=== PATIENT | female | born 1970 | race Caucasian/White ===

== ENCOUNTER → 2024-02-17 17:42 | Outpatient (REF) | payer SELFPAY | LOC: HWRAD 17:42 | PROVIDERS: ATTENDING PHYSICIAN Family Medicine; FAMILY PHYSICIAN Family Medicine | DX: S83.91XA Sprain of unspecified site of right knee, initial encounter (principal); S93.602A Unspecified sprain of left foot, initial encounter | CPT/HCPCS: 73564; 73630 ==

== ENCOUNTER → 2024-06-16 09:36 | Outpatient (REF) | payer OTHER, SELFPAY | LOC: RAD 09:36 | PROVIDERS: ATTENDING PHYSICIAN Physician Assistant Medical; FAMILY PHYSICIAN Family Medicine | DX: N15.1 Renal and perinephric abscess (principal); N28.89 Other specified disorders of kidney and ureter | CPT/HCPCS: 78707; A9539 ==

== ENCOUNTER → 2024-09-07 15:04 | Outpatient (REF) | payer OTHER, SELFPAY | LOC: HWRAD 15:04 | PROVIDERS: ATTENDING PHYSICIAN Urology; FAMILY PHYSICIAN Family Medicine | DX: N15.1 Renal and perinephric abscess (principal); N39.41 Urge incontinence; N32.81 Overactive bladder; R39.16 Straining to void; N13.70 Vesicoureteral-reflux, unspecified | CPT/HCPCS: 74178; Q9967 ==

== ENCOUNTER 2024-10-19 19:00 | Inpatient (IN) | payer OTHER, SELFPAY ==
[2024-10-19] VITALS (8 sets, daily range): BP systolic 102–141; BP diastolic 63–80; BMI 26.3; BMI 26.8
[2024-10-19 11:25] LABS: Glucose - Point of Care 466 mg/dl (70-99)
[2024-10-19 11:53] LABS: Hematocrit 29.1 % (37.0-47.0); Hemoglobin 9.8 g/dL (12.0-16.0); Mean Corp Hgb Conc. 33.7 g/dL (33.0-37.0); Mean Corpuscular Volume 80.2 fL (81.0-99.0); Mean Platelet Volume 9.1 fL (7.4-10.4); Platelet Count 404 10^3/uL (130-400); Red Blood Cell Count 3.63 10^6/uL (4.20-5.40); Red Cell Dist. Width 13.2 % (11.5-14.5); White Blood Cell Count 34.4 10^3/uL (4.8-10.8)
[2024-10-19 12:48] LABS: % Basophils 0.3 % (0-2); % Immature Granulocytes 2.3 % (0-0.5); % Lymphocytes 2.2 % (20.5-51.1); % Monocytes 3.2 % (1.7-9.3); Absolute Basophils 0.1 10^3/uL (0-0.2); Absolute Immature Granulocytes 0.8 10^3/uL (0-0.05); Absolute Lymphocytes 0.8 10^3/uL (1.2-3.4); Absolute Monocytes 1.1 10^3/uL (0.1-0.6); Absolute Neutrophils 31.7 10^3/uL (1.4-6.5); Nucleated Red Blood Cells % 0 %
--- NOTE | 2024-10-19 14:20 | ED.GENMED ---
History of Present Illness
<Daja Scherer, TECHNICAL ADMINISTRATIVE ASSISTANT - Last Filed: 10/19/24 19:38>
General
Chief Complaint: Blood Sugar Problem
Source: patient
Exam Limitations: none
Time Seen by Provider: 10/19/24 13:53
Nursing documentation reviewed up to this point in time: agreed with
History of Present Illness
History of Present Illness:
54 yo female w h/o asthma, IDDM, HLD, Crohn's disease w J-pouch, GERD, colectomy, UTIs, kidney abscess 12/2022, present for fever, night sweats past week. Her blood sugar at home this a.m. was 512 but she fell asleep and didn't take her p.m. Insulin
last night. Max temp was 102.3 4 nights ago, has been taking Tylenol and Motrin with some control of fever.
Has had pain left thigh and groin past 3 days, not much pain with moving the leg or hip at rest but pain is significant past 2 days with weight bearing.
Developed pain LLQ radiating up to just under left lower ribs last night, has been constant now 03/29
Earlier this month had similar symptoms, PCP gave Augmentin for +UTI. Finished the Augmentin on 09/30.
Past History
<Daja Scherer, TECHNICAL ADMINISTRATIVE ASSISTANT - Last Filed: 10/19/24 19:38>
Past History
ED Past Medical History: Asthma, GERD, HTN, Hypercholesterolemia, IDDM, Other (Crohn's disease with J-pouch) and Other (Ovarian cyst, kidney stone)
ED Past Surgical History: Bowel resection
Social History
Tobacco: Non-smoker
Drug: None
Personal:
Living: with family
Employment: Employed
Family History
Family History: Other (No significant)
Review of Systems
<Daja Scherer, TECHNICAL ADMINISTRATIVE ASSISTANT - Last Filed: 10/19/24 19:38>
Review of Systems
Allergies reviewed?: Yes
All Other Systems: ROS reviewed and negative except as documented in HPI and ROS
Constitutional: Reports fever and chills
Respiratory: Denies trouble breathing
Cardiac: Reports diaphoresis (night sweats); Denies chest pain
ABD/GI: Reports abdominal pain; Denies nausea, vomiting or diarrhea
: Denies dysuria, frequency, flank pain, difficulty voiding or urgency
Musculoskeletal: Reports other (pain left groin/hip area); Denies edema
Skin: Reports no symptoms
Neurological: Reports no symptoms
Phy Exam
<Daja Scherer, TECHNICAL ADMINISTRATIVE ASSISTANT - Last Filed: 10/19/24 19:38>
Physical Exam
Physical Exam:
GENERAL: No acute distress. A&Ox3.
CONSTITUTIONAL: Afebrile.
EYES: clear, conjunctivae normal
ENMT: dry mucus membranes, Pharynx nl
RESPIRATORY: Regular respirations, nonlabored, lungs clear.
CARDIOVASCULAR: Regular rate and rhythm, no murmurs, no rubs.
GI: Soft, nontender, normal BS
MUSCULOSKELETAL: Full ROM of left hip with minimal pain laying supine. Tender to deep palpation left groin. Moves with ease. Well perfused.
SKIN: Warm, dry, pink
PSYCH: Normal mood and affect. Well kept, interactive and appropriate
NEUROLOGIC: Awake, alert and oriented. No focal neurological deficits
Course
<Daja Scherer, TECHNICAL ADMINISTRATIVE ASSISTANT - Last Filed: 10/19/24 19:38>
Orders/Labs/Results
Orders:
Orders
10/19/24 11:22
Test Result ONCE
10/19/24 11:33
Complete Blood Count/With Diff Urgent
Lactic Acid Urgent
10/19/24 14:09
B-Hydroxybutyrate Urgent
Comment: ADD ON
Comprehensive Metabolic Panel Urgent
HCG, Serum Qualitative Screen Urgent
Urinalysis Reflex To Culture Urgent
Date Specimen was Collected: 10/19/24
Time Specimen was Collected: 11:21
Urine Microscopic Reflex Cult Urgent
Urine Culture Urgent
CESAR Source: U
Specimen Description:
Obtained by: Random
Date Specimen was Collected: 10/19/24
Time Specimen was Collected: 11:21
10/19/24 14:25
0.9% Sodium Chloride 1000 ml [Nss] 1,000 ml IV BOLUS
10/19/24 15:24
Add On- LAB Urgent
Tests Added?: B=Hydroxybuterate
CXR2 [CR Chest - 2 Views ] Urgent
Comment:
Reason For Exam: Fever/white count/pleuritic pain
10/19/24 15:27
Lactic Acid Q4H
Comment: CANCEL 2nd LACTIC ACID IF 1st LACTIC ACID IS LESS THAN 2
Blood Culture Q30M
CESAR Source: Blood/Venous
Specimen Description:
Blood Culture Q30M
CESAR Source: Blood/Venous
Specimen Description:
10/19/24 15:39
Piperacillin/Tazo 3.375 Gram [Zosyn] 3.375 gram in 50 ml IV NOW
10/19/24 15:40
CT Abd/Pel (IV only)-DH only Urgent
Comment:
Reason For Exam: pain LLQ up to L lower ribcage
10/19/24 15:43
COVID-19 Antigen Urgent
Source: Nasal Swab
Influenza A+B Rapid Molecular Urgent
CESAR Source: Nasal Swab
Specimen Description:
10/19/24 17:08
Urinalysis Reflex To Culture Urgent
Date Specimen was Collected: 10/19/24
Time Specimen was Collected: 17:07
Urine Microscopic Reflex Cult Urgent
Urine Culture Urgent
CESAR Source: U
Specimen Description:
Date Specimen was Collected: 10/19/24
Time Specimen was Collected: 17:07
10/19/24 17:51
Vancomycin [Vancocin] 1,500 mg 0.9% Sodium Chloride 500 ml [Nss] 500 ml IV NOW
10/19/24 18:08
UROLOGY CONSULT Urgent
Consulting Provider: Evert Tellez
Was physician already notified: Yes
Comment: intrarenal and retroperitoneal abscesses
10/19/24 18:10
Consult Interventional Radiology [IRAD CONSULT] Urgent
Consulting Provider: Bhavesh Zimmerman
Was physician already notified: Yes
Reason for Consult/Procedure: viridiana renal and intrarenal abscesses
Acknowledgement that appropriate orders are entered: Yes
10/19/24 18:41
Admit/Transfer Patient As Directed
Co-Sign Provider:
Level of Care: Inpatient admission
Assign to:: Medical/Surgical
Physician / Group: brad
Diagnosis: sepsis perirenal retroperioneal abscess, left kidney abscess
Reason for Hospitalization: sepsis perirenal retroperioneal abscess, left kidney abscess
Expected length of stay greater than two midnights?: Yes
ELOS- Estimated Length of Stay in days: 2
I certify the patient meets the requirements for IP care: Yes
PRN Pain Medication Management As Directed
May give lesser potent ordered pain med per pt: Yes
preference::
Protocol:: Medication orders for pain may be administered in a
manner that supports deferring to patient preference
when the pt is:
- Requesting an ordered lesser potent pain medication.
Least to most potent pain medications are defined
as: acetaminophen < NSAID < tramadol < opioids
(morphine, oxycodone, hydromorphone).
- Requesting a lesser dose of the same medication IF
ORDERED.
- Requesting a less intrusive route of administration
if both routes are prescribed by the provider (PO <
IV).
10/19/24 18:42
Code Status As Directed
Resuscitation Status: Full Code
10/19/24 18:54
Petty Catheter [Catheter- Indwelling] As Directed
Reason for insertion: Acute Retention
Discontinue Date/Time: 10/22/24 0600
Abnormal Lab Results
10/19/24 10/19/24 10/19/24
11:23 11:33 14:09
WBC 34.4 H 10^3/uL
(4.8-10.8)
RBC 3.63 L 10^6/uL
(4.20-5.40)
Hgb 9.8 L g/dL
(12.0-16.0)
Hct 29.1 L %
(37.0-47.0)
MCV 80.2 L fL
(81.0-99.0)
Plt Count 404 H 10^3/uL
(130-400)
Abs Immat Gran (auto) 0.8 H 10^3/uL
(0-0.05)
Absolute Neuts (auto) 31.7 H 10^3/uL
(1.4-6.5)
Absolute Lymphs (auto) 0.8 L 10^3/uL
(1.2-3.4)
Absolute Monos (auto) 1.1 H 10^3/uL
(0.1-0.6)
Immature Gran % 2.3 H %
(0-0.5)
Neutrophils % 92.0 H %
(42.2-75.2)
Lymphocytes % 2.2 L %
(20.5-51.1)
Sodium 121 L mmol/L
(135-145)
Chloride 85 L mmol/L
(98-107)
Carbon Dioxide 21 L mmol/L
(22-30)
BUN 34 H mg/dl
(7-17)
Creatinine 1.2 H mg/dL
(0.6-1.0)
Glucose 473 H* mg/dl
(70-99)
Alkaline Phosphatase 268 H U/L
(38-126)
Albumin 3.2 L g/dl
(3.5-5.0)
Urine Ketones 1+ A
(Negative)
Ur Occult Blood Reflex 4+ A
(Negative)
Leukocyte Esterase Rfl 2+ A
(Negative)
Urine RBC 3-6 A /HPF
(0-2)
Urine WBC (Reflex) >100 A /HPF
(0-5)
Urine Bacteria (Reflex)
Urine Yeast Many A
(Negative)
Urine Glucose 3+ A
(Negative)
Urine Albumin (Reflex) 2+ A
(Neg - Trace)
B-Hydroxybutyrate 2.07 H mmol/L
(0.02-0.27)
POC Glucose 466 H* mg/dl
(70-99)
10/19/24 10/19/24
17:08 18:16
WBC
RBC
Hgb
Hct
MCV
Plt Count
Abs Immat Gran (auto)
Absolute Neuts (auto)
Absolute Lymphs (auto)
Absolute Monos (auto)
Immature Gran %
Neutrophils %
Lymphocytes %
Sodium
Chloride
Carbon Dioxide
BUN
Creatinine
Glucose
Alkaline Phosphatase
Albumin
Urine Ketones 1+ A
(Negative)
Ur Occult Blood Reflex 3+ A
(Negative)
Leukocyte Esterase Rfl 2+ A
(Negative)
Urine RBC 11-15 A /HPF
(0-2)
Urine WBC (Reflex) >100 A /HPF
(0-5)
Urine Bacteria (Reflex) Few A
(Negative)
Urine Yeast Moderate A
(Negative)
Urine Glucose 3+ A
(Negative)
Urine Albumin (Reflex) 1+ A
(Neg - Trace)
B-Hydroxybutyrate
POC Glucose 354 H mg/dl
(70-99)
10/19/24 11:33
10/19/24 14:09
Vital Signs
Initial and Last Documented VS:
Initial Vital Signs
Temp Pulse Resp BP Pulse Ox
97.6 F 93 16 117/76 98
10/19/24 11:22 10/19/24 11:22 10/19/24 11:22 10/19/24 11:22 10/19/24 11:22
Last Documented Vital Signs
Temp Pulse Resp BP Pulse Ox
98.3 F 94 18 115/66 98
10/19/24 12:03 10/19/24 17:00 10/19/24 12:03 10/19/24 16:00 10/19/24 17:30
Safety Analyst consulted with Physician
Safety Analyst consulted with physician?: Yes
Name of Physician Consulted: Stephen
<Lokesh Mitchell MD - Last Filed: 10/19/24 15:27>
Orders/Labs/Results
Orders:
Orders
10/19/24 11:22
Test Result ONCE
10/19/24 11:33
Complete Blood Count/With Diff Urgent
Lactic Acid Urgent
10/19/24 14:09
B-Hydroxybutyrate Urgent
Comment: ADD ON
Comprehensive Metabolic Panel Urgent
HCG, Serum Qualitative Screen Urgent
Urinalysis Reflex To Culture Urgent
Date Specimen was Collected: 10/19/24
Time Specimen was Collected: 11:21
Urine Microscopic Reflex Cult Urgent
Urine Culture Urgent
CESAR Source: U
Specimen Description:
Obtained by: Random
Date Specimen was Collected: 10/19/24
Time Specimen was Collected: 11:21
10/19/24 14:25
0.9% Sodium Chloride 1000 ml [Nss] 1,000 ml IV BOLUS
10/19/24 15:24
Add On- LAB Urgent
Tests Added?: B=Hydroxybuterate
CXR2 [CR Chest - 2 Views ] Urgent
Comment:
Reason For Exam: Fever/white count/pleuritic pain
10/19/24 15:27
Lactic Acid Q4H
Comment: CANCEL 2nd LACTIC ACID IF 1st LACTIC ACID IS LESS THAN 2
Blood Culture Q30M
CESAR Source: Blood/Venous
Specimen Description:
Blood Culture Q30M
CESAR Source: Blood/Venous
Specimen Description:
10/19/24 15:39
Piperacillin/Tazo 3.375 Gram [Zosyn] 3.375 gram in 50 ml IV NOW
10/19/24 15:40
CT Abd/Pel (IV only)-DH only Urgent
Comment:
Reason For Exam: pain LLQ up to L lower ribcage
10/19/24 15:43
COVID-19 Antigen Urgent
Source: Nasal Swab
Influenza A+B Rapid Molecular Urgent
CESAR Source: Nasal Swab
Specimen Description:
10/19/24 17:08
Urinalysis Reflex To Culture Urgent
Date Specimen was Collected: 10/19/24
Time Specimen was Collected: 17:07
Urine Microscopic Reflex Cult Urgent
Urine Culture Urgent
CESAR Source: U
Specimen Description:
Date Specimen was Collected: 10/19/24
Time Specimen was Collected: 17:07
10/19/24 17:51
Vancomycin [Vancocin] 1,500 mg 0.9% Sodium Chloride 500 ml [Nss] 500 ml IV NOW
10/19/24 18:08
UROLOGY CONSULT Urgent
Consulting Provider: Evert Tellez
Was physician already notified: Yes
Comment: intrarenal and retroperitoneal abscesses
10/19/24 18:10
Consult Interventional Radiology [IRAD CONSULT] Urgent
Consulting Provider: Bhavesh Zimmerman
Was physician already notified: Yes
Reason for Consult/Procedure: viridiana renal and intrarenal abscesses
Acknowledgement that appropriate orders are entered: Yes
10/19/24 18:41
Admit/Transfer Patient As Directed
Co-Sign Provider:
Level of Care: Inpatient admission
Assign to:: Medical/Surgical
Physician / Group: brad
Diagnosis: sepsis perirenal retroperioneal abscess, left kidney abscess
Reason for Hospitalization: sepsis perirenal retroperioneal abscess, left kidney abscess
Expected length of stay greater than two midnights?: Yes
ELOS- Estimated Length of Stay in days: 2
I certify the patient meets the requirements for IP care: Yes
PRN Pain Medication Management As Directed
May give lesser potent ordered pain med per pt: Yes
preference::
Protocol:: Medication orders for pain may be administered in a
manner that supports deferring to patient preference
when the pt is:
- Requesting an ordered lesser potent pain medication.
Least to most potent pain medications are defined
as: acetaminophen < NSAID < tramadol < opioids
(morphine, oxycodone, hydromorphone).
- Requesting a lesser dose of the same medication IF
ORDERED.
- Requesting a less intrusive route of administration
if both routes are prescribed by the provider (PO <
IV).
10/19/24 18:42
Code Status As Directed
Resuscitation Status: Full Code
10/19/24 18:54
Petty Catheter [Catheter- Indwelling] As Directed
Reason for insertion: Acute Retention
Discontinue Date/Time: 10/22/24 0600
Abnormal Lab Results
10/19/24 10/19/24 10/19/24
11:23 11:33 14:09
WBC 34.4 H 10^3/uL
(4.8-10.8)
RBC 3.63 L 10^6/uL
(4.20-5.40)
Hgb 9.8 L g/dL
(12.0-16.0)
Hct 29.1 L %
(37.0-47.0)
MCV 80.2 L fL
(81.0-99.0)
Plt Count 404 H 10^3/uL
(130-400)
Abs Immat Gran (auto) 0.8 H 10^3/uL
(0-0.05)
Absolute Neuts (auto) 31.7 H 10^3/uL
(1.4-6.5)
Absolute Lymphs (auto) 0.8 L 10^3/uL
(1.2-3.4)
Absolute Monos (auto) 1.1 H 10^3/uL
(0.1-0.6)
Immature Gran % 2.3 H %
(0-0.5)
Neutrophils % 92.0 H %
(42.2-75.2)
Lymphocytes % 2.2 L %
(20.5-51.1)
Sodium 121 L mmol/L
(135-145)
Chloride 85 L mmol/L
(98-107)
Carbon Dioxide 21 L mmol/L
(22-30)
BUN 34 H mg/dl
(7-17)
Creatinine 1.2 H mg/dL
(0.6-1.0)
Glucose 473 H* mg/dl
(70-99)
Alkaline Phosphatase 268 H U/L
(38-126)
Albumin 3.2 L g/dl
(3.5-5.0)
Urine Ketones 1+ A
(Negative)
Ur Occult Blood Reflex 4+ A
(Negative)
Leukocyte Esterase Rfl 2+ A
(Negative)
Urine RBC 3-6 A /HPF
(0-2)
Urine WBC (Reflex) >100 A /HPF
(0-5)
Urine Bacteria (Reflex)
Urine Yeast Many A
(Negative)
Urine Glucose 3+ A
(Negative)
Urine Albumin (Reflex) 2+ A
(Neg - Trace)
B-Hydroxybutyrate 2.07 H mmol/L
(0.02-0.27)
POC Glucose 466 H* mg/dl
(70-99)
10/19/24 10/19/24
17:08 18:16
WBC
RBC
Hgb
Hct
MCV
Plt Count
Abs Immat Gran (auto)
Absolute Neuts (auto)
Absolute Lymphs (auto)
Absolute Monos (auto)
Immature Gran %
Neutrophils %
Lymphocytes %
Sodium
Chloride
Carbon Dioxide
BUN
Creatinine
Glucose
Alkaline Phosphatase
Albumin
Urine Ketones 1+ A
(Negative)
Ur Occult Blood Reflex 3+ A
(Negative)
Leukocyte Esterase Rfl 2+ A
(Negative)
Urine RBC 11-15 A /HPF
(0-2)
Urine WBC (Reflex) >100 A /HPF
(0-5)
Urine Bacteria (Reflex) Few A
(Negative)
Urine Yeast Moderate A
(Negative)
Urine Glucose 3+ A
(Negative)
Urine Albumin (Reflex) 1+ A
(Neg - Trace)
B-Hydroxybutyrate
POC Glucose 354 H mg/dl
(70-99)
10/19/24 11:33
10/19/24 14:09
Vital Signs
Initial and Last Documented VS:
Initial Vital Signs
Temp Pulse Resp BP Pulse Ox
97.6 F 93 16 117/76 98
10/19/24 11:22 10/19/24 11:22 10/19/24 11:22 10/19/24 11:22 10/19/24 11:22
Last Documented Vital Signs
Temp Pulse Resp BP Pulse Ox
98.3 F 94 18 115/66 98
10/19/24 12:03 10/19/24 17:00 10/19/24 12:03 10/19/24 16:00 10/19/24 17:30
<Daja Scherer, TECHNICAL ADMINISTRATIVE ASSISTANT - Last Filed: 10/19/24 19:38>
MDM/Problems Addressed
Differential Diagnosis Includes:
Septic left hip
Crohn's flare, Pyelonephritis, abscess
MDM/Problems Addressed:
54 yo female w h/o asthma, IDDM, HLD, Crohn's disease w J-pouch, GERD, colectomy, UTIs, kidney abscess 12/2022, present for fever, night sweats past week. Her blood sugar at home this a.m. was 512 but she fell asleep and didn't take her p.m. Insulin
last night. Max temp was 102.3 4 nights ago, has been taking Tylenol and Motrin with some control of fever.
Has had pain left thigh and groin past 3 days, not much pain with moving the leg or hip at rest but pain is significant past 2 days with weight bearing.
Developed pain LLQ radiating up to just under left lower ribs last night, has been constant now 03/29
Earlier this month had similar symptoms, PCP gave Augmentin for +UTI. Finished the Augmentin on 09/30.
3:00 p.m.
CBC : WBC 34.4 with left shift
CMP: Na 121 (corrected: 127).
Anion Gap 21 will treat as sepsis (bolus 1400 ml infusing)
IV antibiotics ordered
Dr. Mitchell in to evaluate
CT left hip, abd/pelvis w IV contrast pending
Pt stable, states she's comfortable
U/A 4+ occult blood, 2+leuk esterase, >100 WBC, many yeast, >30 squamous cells, this is a contaminated specimen, attempting to get a clean sample
6:15 PM:
2nd U/A unchanged.
CT radiology report reviewed:IMPRESSION:
1. LARGE 16 cm LEFT PERIRENAL RETROPERITONEAL ABSCESS in the left psoas muscle and iliopsoas bursa extending from the left kidney to the left lesser trochanter.
2. 2.8 cm LEFT INTRARENAL ABSCESS in the lateral cortex of the left kidney.
3. Moderate bilateral urothelial thickening and ureteral distention suggesting acute ureteritis bilateral ascending urinary tract infection. No CT evidence for obstructing ureteral calculus.
4. Mild diffuse urinary bladder wall thickening suggesting acute cystitis.
5. Moderate hepatosplenomegaly.
6. Cholelithiasis.
7. Mild biliary dilatation.
8. Previous total colectomy and J-pouch reconstruction.
Copy of CPT reports sent to on-call urology, interventional radiologist, hospitalist
Patient to be admitted for SIRS, intra renal and retroperitoneal abscesses, hyperglycemia
Pt remains stable.
Sepsis protocol followed.
<Daja Scherer NP - Last Filed: 10/19/24 19:38>
*Critical Care Note
Total Time (30-74mins, 75-104mins- exclusive of procedures): Not Applicable
ED Attending Note
<Daja Scherer NP - Last Filed: 10/19/24 19:38>
-
Portions of this chart may have been created with voice recognition software.� Occasional wrong word or��sound alike� substitutions may have occurred due to the inherent limitations of voice recognition software.
<Lokesh Mitchell MD - Last Filed: 10/19/24 15:27>
ED Attending Note
Patient seen and examined by attending physician: Yes
I performed the substantive portion of visit, reviewed & personally made and approve the management plan that is documented in note by myself or JORJE.: Yes
ED Attending Note:
54-year-old female complaining of on and off low-grade fever throughout the week. Yesterday evening started developing left lower quadrant pain radiating towards the left hip. In addition forgot her insulin last evening. On exam patient is
nontoxic-appearing stable vital signs. No respiratory distress. Mild left lower quadrant tenderness. No rebound or guarding no mass or hernia. Warm and dry. Perfusing well. She has no pain with left hip rotation. She does however point to the
proximal medial abductor area of the left leg. There is no warmth erythema drainage in this location however. Patient has a significant leukocytosis. She is dehydrated. Further workup for infectious symptoms will include chest x-ray CT abdomen
and pelvis with IV contrast. CT of the left hip. However very low suspicion for a septic arthritis given the clinical lack of pain with rotation. Will cover with antibiotics. Continue fluids. Clearly warrants admission. COVID and flu pending.
Discharge Plan
Departure
Patient Disposition: Admit
Date of Disposition: 10/19/24
Time of Disposition: 18:11
Admit to: Telemetry
Presentation/result/management discussed w/ accepting MD/DO: Hospitalist
Condition: Serious
Covid-19: Negative COVID-19
Discharge Problem:
Abscess, retroperitoneal, Hyperglycemia, Abscess of left kidney, SIRS (systemic inflammatory response syndrome)
Interventions
Interventions:
*Risk Screen - Suicide Last Done: 10/19/24 17:58
*General Assessment Last Done: 10/19/24 17:58
*Neglect/Abuse Screening Last Done: 10/19/24 17:58
*ED COVID-19 Vaccine History Last Done: 10/19/24 17:58
ED- Neurological Assessment Last Done: 10/19/24 17:51
[2024-10-19 14:32] LABS: Urine Albumin 2+ (Neg - Trace); Urine Bilirubin Negative (Negative); Urine Character Very Cloudy (Clear); Urine Color Yellow; Urine Glucose 3+ (Negative); Urine Ketone 1+ (Negative); Urine Leukocyte 2+ (Negative); Urine Nitrite Negative (Negative); Urine Occult Blood 4+ (Negative); Urine Specific Gravity 1.015 (<1.030); Urine Urobilinogen Negative (Neg - 1+)
[2024-10-19 15:01] LABS: HCG, Serum Qualitative Screen Negative
[2024-10-19 15:06] LABS: Urine Squamous Cell >30 /LPF (Few)
[2024-10-19 15:08] LABS: ALT (SGPT) 13 U/L (0-35); AST (SGOT) 18 U/L (14-36); Albumin 3.2 g/dl (3.5-5.0); Alkaline Phosphatase 268 U/L (38-126); Blood Urea Nitrogen 34 mg/dl (7-17); Calcium 9.1 mg/dl (8.4-10.2); Carbon Dioxide 21 mmol/L (22-30); Chloride 85 mmol/L (98-107); Estimated Creatinine Clearance 44 ml/min; Glucose 473 mg/dl (70-99); Potassium 4.7 mmol/L (3.5-5.1); Sodium 121 mmol/L (135-145); Total Bilirubin 0.6 mg/dl (0.2-1.3); Total Protein 7.4 g/dl (6.3-8.2); eGFR 54.13
[2024-10-19 15:10] LABS: Urine White Cell >100 /HPF (0-5)
[2024-10-19 15:11] LABS: Urine Yeast Many (Negative)
[2024-10-19] MEDS: NSS 1000 IV ×2 (15:19→21:01)
[2024-10-19 15:51] LABS: Lactic Acid 1.4 mmol/L (0.7-2.0)
[2024-10-19 16:22] LABS: COVID-19 Antigen Negative (Negative)
[2024-10-19 16:54] LABS: B-Hydroxybutyrate 2.07 mmol/L (0.02-0.27)
[2024-10-19] MEDS: ZOSYN 50 IV ×2 (17:04→23:23)
[2024-10-19 17:24] LABS: Urine Albumin 1+ (Neg - Trace); Urine Bilirubin Negative (Negative); Urine Character Very Cloudy (Clear); Urine Color Yellow; Urine Glucose 3+ (Negative); Urine Ketone 1+ (Negative); Urine Leukocyte 2+ (Negative); Urine Nitrite Negative (Negative); Urine Occult Blood 3+ (Negative); Urine Urobilinogen Negative (Neg - 1+)
[2024-10-19 17:47] LABS: Urine Bacteria Few (Negative); Urine White Cell >100 /HPF (0-5)
[2024-10-19 17:48] LABS: Urine Yeast Moderate (Negative)
[2024-10-19] MEDS: VANCOCIN 530 MG IV (18:00)
[2024-10-19 18:18] LABS: Glucose - Point of Care 354 mg/dl (70-99)
--- NOTE | 2024-10-19 18:50 | HPS.HSE ---
Family Physician
-
Family Physician: Lokesh Garcia
Chief Complaint
-
fever
History of Present Illness
54-year-old female past medical history of asthma, diabetes, hyperlipidemia, Crohn's disease with J-pouch, GERD, UTIs, right kidney abscess in December of 2022 status post drainage presenting for fever, night sweats past week. Her blood sugar this
morning was 512 but she fell asleep and did not take her insulin last night.
She has had significant pain in her left thigh and groin since the past week with weightbearing. She developed pain in her left lower quadrant rating to under her left lower ribs last night.
Patient has similar symptoms earlier this month and primary care physician gave her Augmentin for UTI. She finished Augmentin on 09/30.
She had a cystoscopy several months ago and was told by urologist that she has trouble voiding urine/hydronephrosis due to possible ureterovesicular reflux unclear cause.
She denies smoking or alcohol use.
Medical History
Past Medical History
Past Medical History: Reports Other (asthma, diabetes, hyperlipidemia, Crohn's disease with J-pouch, GERD, UTIs, right kidney abscess in December of 2022 status post drainage)
Past Surgical History: Reports Other (colectomy, J pouch )
Social History
Tobacco: Non-smoker
Alcohol: None
Drug: None
Family History
Family History: Not pertinent
Allergies / Home Medications
Allergies reflects when Allergies were last updated in [facility].
Home Medications with original date entered in [facility]
Allergy/Medication List:
Allergies
Allergy/AdvReac Type Severity Reaction Status Date / Time
levofloxacin [From Levaquin] Allergy Rash/tolerated Verified 10/19/24 11:26
cipro
metronidazole [From Flagyl] Allergy Rash Verified 10/19/24 11:26
Home Medications
loperamide 2 mg capsule 12 mg PO HS Gastrointestinal issue 01/07/17
omeprazole 20 mg capsule,delayed release 20 mg PO HS Gastrointestinal issue 01/07/17
insulin glargine 100 unit/mL (3 mL) subcutaneous pen (Lantus Solostar U-100 Insulin) 40 unit SC HS Diabetes 06/12/22
montelukast 10 mg tablet (Singulair) 10 mg PO HS Allergies 06/12/22
ergocalciferol (vitamin D2) 1,250 mcg (50,000 unit) capsule 1,250 mcg PO SENA Supplement 07/11/22
mirabegron 25 mg tablet,extended release 24 hr (Myrbetriq) 25 mg PO HS 06/25/23
solifenacin 5 mg tablet 5 mg PO HS 06/25/23
Review of Systems
-
History Source: Patient
A 12 point ROS was completed and negative except as noted: Yes
Constitutional: Reports No Symptoms
EENT: Reports No Symptoms
Respiratory: Reports No Symptoms
Cardiac: Reports No Symptoms
Abdomen/GI: Reports See HPI
: Reports No Symptoms
Musculoskeletal: Reports See HPI
Skin: Reports No Symptoms
Neurological: Reports No Symptoms
Endocrine: Reports No Symptoms
Hematologic/Lymphatic: Reports No Symptoms
Psych: Reports No Symptoms
Physical Exam
Vital Signs
Vital Signs
Temp Pulse Resp BP Pulse Ox
98.3 F 94 18 115/66 98
10/19/24 12:03 10/19/24 17:00 10/19/24 12:03 10/19/24 16:00 10/19/24 17:30
Physical Exam
General: Well Developed, Well Nourished and No Apparent Distress
HEENT: NormoCephalic, Moist mucous membranes and Atraumatic
Respiratory: Clear
Cardiac: S1/S2 and Regular Rhythm; No Murmur or Rub
GI: Soft, Non Tender, Non Distended and Normal Bowel Sounds; No Organomegaly
Rectal: Deferred by Provider
Musculoskeletal: No Clubbing, No Cyanosis and No Edema
Skin: No Rash
Neuro: Nonfocal/grossly intact
Laboratory Results
-
10/19/24 11:33
10/19/24 14:09
Laboratory Results
Lactic Acid Cancelled 10/19/24 18:45
Total Bilirubin 0.6 mg/dl (0.2-1.3) 10/19/24 14:09
AST 18 U/L (14-36) 10/19/24 14:09
ALT 13 U/L (0-35) 10/19/24 14:09
Alkaline Phosphatase 268 U/L (38-126) H 10/19/24 14:09
Lipase Cancelled 10/19/24 11:33
Data Reviewed
-
Lab Data: Labs Reviewed by me
Old Records: Reviewed
Impression/Plan
-
IMPRESSION:
PLAN:
# Sepsis (leukocytosis, tachycardia, fever at home) secondary to left perirenal retroperitoneal abscess in the left psoas muscle/iliopsoas bursa
# Left intrarenal abscess
# History of right kidney abscess
# Acute bilateral ureteritis/cystitis
-N.p.o.
-IV fluids
-Blood cultures pending, urine culture pending
-Zosyn, vancomycin
-IR, urology, ID consulted
-IR planning on drainage tomorrow
-N.p.o. past midnight
-Petty catheter recommended by urology
# Acute kidney injury secondary to sepsis
-Monitor with IV fluids
# Hyperglycemia secondary to missed insulin dose/sepsis
# Type 2 diabetes
-Continue 40 units of Lantus
-Insulin sliding scale
# Pseudohyponatremia
-Monitor with IV fluids and blood sugar management
# Anemia
-Hemoglobin 9.8 from 12.5
Crohn's disease status post colectomy and J-pouch
Asthma
-Continue montelukast
Hyperlipidemia
GERD
-Continue omeprazole
Full code
DVT prophylaxis�SCDs
Diabetic diet, n.p.o. past midnight
[2024-10-19 19:32] LABS: Glucose - Point of Care 324 mg/dl (70-99)
--- NOTE | 2024-10-19 20:20 | PHA.VAN.IN ---
Assessment
- Assessment
Renal Function: Appears elevated from baseline (07/18/23 BASELINE SCR: 0.6)
Concomitant Antimicrobials: ZOSYN
- Previous Dosing Experience
Previous Regimen: 750MG IV Q12H
Date of Regimen: 12/20/22
Provided Trough of: UNKNOWN
Provided AUC of: UNKNOWN
Patient's SCR is: Elevated compared to previous dosing experience (12/20/22 SCR = 0.4)
Patient's weight is: Similar to previous dosing experience (12/20/22 WT = 62.1 KG)
Plan
- Plan
Initial / Loading Dose: 1500MG
Maintenance Regimen: DOSING BY RANDOM LEVEL
Monitoring: RANDOM VANCOMYCIN LEVEL 10/20/24 AM
Pharmacokinetics Vancomycin I
- -
Patient Age: 54
Patient Sex: Female
Vancomycin Day #: 1
Indication: Gi / Intra-Abdominal (RENAL ABSCESS/SEPSIS)
Requesting Provider: SANTIAGO
Pertinent Antimicrobial Allergies:
Allergies
levofloxacin [From Levaquin] Allergy (Verified 10/19/24 11:26)
Rash/tolerated cipro
metronidazole [From Flagyl] Allergy (Verified 10/19/24 11:26)
Rash
Height / Weight:
Height 5 ft
Actual Weight 62.284 kg
Pertinent Past Medical History: DM
- Vital Signs / Lab Results
Temp Pulse Resp BP Pulse Ox
98.7 F 97 18 141/74 96
10/19/24 19:50 10/19/24 19:50 10/19/24 19:50 10/19/24 19:50 10/19/24 19:54
Lab Results - Hematology
10/19/24
11:33
WBC 34.4 H
Lab Results - Chemistry
10/19/24 10/19/24
11:33 14:09
BUN Cancelled 34 H
Creatinine Cancelled 1.2 H
Estimated Creat Clear Cancelled 44
Albumin Cancelled 3.2 L
10/19/24 10/19/24 10/19/24
11:33 15:27 18:45
Lactic Acid 2.0 1.4 Cancelled
Lab Results - Urine
10/19/24 10/19/24 10/19/24
14:08 14:09 17:08
Urine Nitrite Cancelled
Urine Nitrite (Reflex) Negative Negative
Ur Leukocyte Esterase Cancelled
Leukocyte Esterase Rfl 2+ A 2+ A
Urine WBC (Reflex) >100 A >100 A
Ur Squamous Epith Cells >30 6-10
Urine Bacteria (Reflex) Few A
Microbiology Results
10/19/24 15:43 Influenza Types A & B (LUIS FELIPE) - Final
Nasal Swab Negative for Influenza A & B, NAAT
Negative results must be combined with clinical observations
and patient history.
Nucleic Acid Amplification test (NAAT)performed on the
[employer] NOW platform.
[2024-10-19 21:26] LABS: Glucose - Point of Care 312 mg/dl (70-99)
[2024-10-19] MEDS: MYRBETRIQ EXTENDED RELEASE 25 MG PO (23:17)
[2024-10-19] MEDS: PROTONIX 40 MG PO (23:17)
[2024-10-19] MEDS: VESICARE 5 MG PO (23:17)
[2024-10-19] MEDS: SINGULAIR 10 MG PO (23:18)
[2024-10-19] MEDS: LANTUS 0.4 UNITS SC (23:18)
[2024-10-20] MEDS: TYLENOL 650 MG PO ×2 (02:49→21:37)
--- NOTE | 2024-10-20 05:02 | PTCARENOTE ---
Patient c/o pain that was unrelieved with Tylenol. Patient reports she received a one time order of Morphine last night that was effective. ODILON Hunter notified. Order for Morphine 1mg IV received. Will continue to monitor, Care ongoing.
[2024-10-20] MEDS: ZOSYN 50 IV ×3 (05:03→17:46)
[2024-10-20] MEDS: MORPHINE SULFATE 1 MG IV (05:03)
[2024-10-20] MEDS: NSS 1000 IV ×2 (06:12→22:16)
[2024-10-20 06:38] LABS: Glucose - Point of Care 273 mg/dl (70-99)
[2024-10-20] MEDS: NOVOLOG FLEXPEN-LOW RESISTANCE 3 UNITS SC (06:57)
--- NOTE | 2024-10-20 07:21 | W.PN.HOSP.TC ---
Addendum entered and electronically signed by Joelle Huston MD 10/20/24 16:02:
I saw and evaluated the patient independently. I reviewed the resident�s note and agree with findings and plan as documented by Dr. Hoang.
GENERAL: well developed, well nourished, pale appearing female in no apparent distress
HEENT: NC/AT
HEART: regular rate and rhythm, +S1, +S2
LUNGS : clear to auscultation bilaterally
ABDOM: soft, nontender, nondistended, + bowel sounds--drain in left groin area
EXT: no cyanosis, clubbing, or edema
NEUROLOGIC: grossly intact
: aguillon with clear urine
Sepsis secondary to left perirenal retroperitoneal abscess in the left psoas muscle/iliopsoas bursa--apprec IR for drainage--cultures pending--apprec urology--await ID--cont aguillon--cont IVF--cont zosyn/vanco--trend WBC count--cont aguillon cath
Acute kidney injury secondary to sepsis plus hydronephrosis--cont aguillon--cont IVF--creat back to baseline
Type 2 IDDM--Continue 40 units of Lantus--Insulin sliding scale-- HGB A1C 13 (not well controlled)
Pseudohyponatremia --Monitor with IV fluids and blood sugar management
Anemia--likely of chronic disease--iron studies not c/w iron deficiency--Hemoglobin 9.8 test�>8.7, was 12.5 on last admission--denies any bleeding
Asthma--Continue montelukast
GERD--Continue omeprazole
Hyperlipidemia--diet controlled?--check lipid panel
Crohn's disease status post colectomy and J-pouch--likely cause of chronic anemia
code status--Full code
DVT prophylaxis�SCDs
Original Note:
Today's Communication/Plan
-
Continue IV antibiotics
Pending urine culture, blood culture
Assessment / Plan
Assessment / Plan
IMPRESSION: This is a 54-year-old female past medical history of asthma, diabetes, hyperlipidemia, Crohn's disease with J-pouch, GERD, UTIs, right kidney abscess in December of 2022 status post drainage presented to ED for fever, night sweats and pain
in left thigh and groin.
Assessment/Plan:
# Sepsis secondary to left perirenal retroperitoneal abscess in the left psoas muscle/iliopsoas bursa
-Continue IV fluids
-Blood cultures pending, urine culture pending
-Zosyn, vancomycin
-IR, urology, ID consulted
-Drainage was done by IR today, purulent fluid sent to lab, left retroperitoneal drainage catheter placed
�Diet restarted
�WBC downtrending, today 32.9, monitor temperature curve
-Continue Aguillon catheter
# Acute kidney injury secondary to sepsis
-Monitor with IV fluids
- creatinine returned to baseline
#IDDM
-Continue 40 units of Lantus
-Insulin sliding scale
# Pseudohyponatremia
-Monitor with IV fluids and blood sugar management
# Anemia-?ALIYA
-Hemoglobin 9.8 test�>8.7, was 12.5 on last admission
� Iron panel: Iron 24, TIBC 142, percent saturation 16, ferritin elevated, MCV 81, normal reticulocyte count----> likely more so inflammatory anemia than ALIYA
-Monitor CBC
-Patient in menopause, denies any postmenopausal bleeding
#Asthma
-Continue montelukast
#GERD
-Continue omeprazole
#Hyperlipidemia
#Crohn's disease status post colectomy and J-pouch
Full code
DVT prophylaxis�SCDs
Anticipated Discharge: 24 - 48 hours
Subjective/Interval History
-
Date of Service: October 20, 2024
Patient continues to have left lower abdomen pain.
Objective Data
-
Labs:
Laboratory Results
10/20/24
07:02
WBC Pending
Hgb Pending
Hct Pending
Plt Count Pending
Sodium Pending
Potassium Pending
Chloride Pending
Carbon Dioxide Pending
BUN Pending
Creatinine Pending
Glucose Pending
Calcium Pending
Total Bilirubin Pending
AST Pending
ALT Pending
Alkaline Phosphatase Pending
Vital Signs:
Vital Signs
Temp Pulse Resp BP Pulse Ox
98.1 F 95 17 117/63 95
10/20/24 06:27 10/19/24 22:30 10/19/24 22:30 10/19/24 22:30 10/19/24 22:30
I&O
10/19/24 10/20/24 10/21/24
06:59 06:59 06:59
Output Total 850 / 850
Balance -850 / -850
Review of Systems
-
All other systems: Reviewed and negative
Physical Exam
-
General: No Apparent Distress
HEENT: Normocephalic
Respiratory: Clear to Auscultation
Cardiac: Regular Rhythm and S1/S2
GI: Soft, Nondistended, Tender (left lower abdomen) and Other (drain on left side of abdomen)
Skin: Warm and Dry
Neuro: Awake, Alert and Oriented
Psych: Calm
[2024-10-20 07:48] LABS: Glucose - Point of Care 266 mg/dl (70-99)
[2024-10-20 07:57] VITALS: BP 109/60
[2024-10-20 08:20] LABS: Hematocrit 26.4 % (37.0-47.0); Hemoglobin 8.7 g/dL (12.0-16.0); Mean Corpuscular Hgb 26.7 pg (27.0-31.0); Platelet Count 402 10^3/uL (130-400); Red Blood Cell Count 3.26 10^6/uL (4.20-5.40); Red Cell Dist. Width 13.2 % (11.5-14.5); White Blood Cell Count 32.9 10^3/uL (4.8-10.8)
[2024-10-20 08:40] LABS: % Basophils 0.3 % (0-2); % Immature Granulocytes 2.7 % (0-0.5); % Lymphocytes 2.8 % (20.5-51.1); % Monocytes 4.1 % (1.7-9.3); % Neutrophils 90.1 % (42.2-75.2); Absolute Basophils 0.1 10^3/uL (0-0.2); Absolute Immature Granulocytes 0.9 10^3/uL (0-0.05); Absolute Lymphocytes 0.9 10^3/uL (1.2-3.4); Absolute Monocytes 1.4 10^3/uL (0.1-0.6); Absolute Neutrophils 29.7 10^3/uL (1.4-6.5); Nucleated Red Blood Cells % 0 %
[2024-10-20 09:01] LABS: ALT (SGPT) 11 U/L (0-35); AST (SGOT) 16 U/L (14-36); Albumin 2.4 g/dl (3.5-5.0); Alkaline Phosphatase 211 U/L (38-126); Blood Urea Nitrogen 19 mg/dl (7-17); Calcium 8.6 mg/dl (8.4-10.2); Carbon Dioxide 19 mmol/L (22-30); Chloride 95 mmol/L (98-107); Estimated Creatinine Clearance 67 ml/min; Glucose 253 mg/dl (70-99); Sodium 129 mmol/L (135-145); Total Bilirubin 0.5 mg/dl (0.2-1.3); eGFR > 60.00
--- NOTE | 2024-10-20 09:08 | PHA.VAN.FU ---
Vancomycin Assessment / Plan
- Assessment
Renal Function: SCR Decreasing (1.2->0.8)
WBC's are: Stable (elevated ~ 32.9)
In the past 24 hrs, patient has been: Afebrile
Concomitant Antimicrobials: piperacillin/tazobactam
- Assessment - Therapeutic Drug Monitoring
Random Level: 10 - after 1500 mg LD 10/19 1800
- Dosing Plan
Continue: dose by random level for now
Dosing by Level: Re-dose today (1250 mg x 1 dose)
scheduled dosing 1250 mg q24h predicts AUC 494; P/T 37.7/11.5; T1/2=11.5h. 750mg q12h predicts AUC 593; P/T 33.7/17.4; T1/2 = 11.5 h
- Monitoring Plan
Random Level: random level 10/21 06
- Follow Up
Pharmacy will continue to follow.
Vancomycin Follow UP
- -
Patient Age: 54
Patient Sex: Female
Vancomycin Day #: 2
Indication: Gi / Intra-Abdominal (RENAL ABSCESS/SEPSIS)
Requesting Provider: SANTIAGO
Pertinent Antimicrobial Allergies:
Allergies
levofloxacin [From Levaquin] Allergy (Verified 10/19/24 11:26)
Rash/tolerated cipro
metronidazole [From Flagyl] Allergy (Verified 10/19/24 11:26)
Rash
Height / Weight:
Height 5 ft
Actual Weight 62.284 kg
Pertinent Past Medical History: DM
- Vital Signs / Lab Results
Temp Pulse Resp BP Pulse Ox
97.9 F 88 18 109/60 96
10/20/24 07:57 10/20/24 07:57 10/20/24 07:57 10/20/24 07:57 10/20/24 07:57
Lab Results - Hematology
10/19/24 10/20/24
11:33 07:02
WBC 34.4 H 32.9 H
Lab Results - Chemistry
10/19/24 10/19/24 10/20/24
11:33 14:09 07:02
BUN Cancelled 34 H 19 H
Creatinine Cancelled 1.2 H 0.8
Estimated Creat Clear Cancelled 44 67
Albumin Cancelled 3.2 L 2.4 L
10/19/24 10/19/24 10/19/24
11:33 15:27 18:45
Lactic Acid 2.0 1.4 Cancelled
Lab Results - Urine
10/19/24 10/19/24 10/19/24
14:08 14:09 17:08
Urine Nitrite Cancelled
Urine Nitrite (Reflex) Negative Negative
Ur Leukocyte Esterase Cancelled
Leukocyte Esterase Rfl 2+ A 2+ A
Ur Squamous Epith Cells >30 6-10
Microbiology Results
10/19/24 15:43 Influenza Types A & B (LUIS FELIPE) - Final
Nasal Swab Negative for Influenza A & B, NAAT
Negative results must be combined with clinical observations
and patient history.
Nucleic Acid Amplification test (NAAT)performed on the
[employer] platform.
Therapeutic Drug Monitoring
Random Vancomycin 10.0 ug/ml 10/20/24 07:02
[2024-10-20] MEDS: SYMBICORT 160/4.5 MCG INHALER 2 PUFF INH ×2 (09:56→20:25)
[2024-10-20 11:30] VITALS: BP 123/70; BP_SYST 90
--- NOTE | 2024-10-20 11:42 | W.PN.UPDATE ---
Update Note
Progress Note Update
Patient off the floor for procedure this AM
Large left retroperitoneal and renal abscess
IR today for percutaneous drain placement
Continue broad spectrum abx pending cultures from abscess
Maintain aguillon
Formal consult to follow
[2024-10-20 12:05] LABS: Iron 24 ug/dl (37-170)
[2024-10-20 12:12] LABS: Reticulocyte Count 0.8 % (0.4-2.8)
[2024-10-20 12:15] LABS: Percent Saturation 16 % (20-50); Total Iron Binding Capacity 142 ug/dl (265-497)
[2024-10-20 12:50] VITALS: BP 122/65
--- NOTE | 2024-10-20 12:50 | W.PN.UPDATE ---
Update Note
Progress Note Update
Left retroperitoneal drainage catheter placed, yielding 45 cc of purulent fluid. Sent for laboratory analysis.
Ultrasound was performed, and the small left intrarenal collection was not well seen with US. The intrarenal collection was also not seen on noncontrast CT. Therefore, no intrarenal drainage was performed.
[2024-10-20 13:12] LABS: Glucose - Point of Care 264 mg/dl (70-99)
[2024-10-20 13:14] VITALS: BP 115/62
[2024-10-20] MEDS: VANCOCIN 275 MG IV (13:49)
--- NOTE | 2024-10-20 14:00 | PTCARENOTE ---
AM Vanco delayed for pt procedure, IV fluids delayed as well.
[2024-10-20] MEDS: NOVOLOG FLEXPEN-LOW RESISTANCE 2 UNITS SC (14:50)
[2024-10-20 15:42] VITALS: BP 123/68
[2024-10-20 17:05] LABS: Glucose - Point of Care 350 mg/dl (70-99)
[2024-10-20] MEDS: NOVOLOG FLEXPEN-LOW RESISTANCE 5 UNITS SC (17:45)
[2024-10-20] MEDS: NSS IV (21:31)
[2024-10-20 21:32] LABS: Glucose - Point of Care 364 mg/dl (70-99)
[2024-10-20] MEDS: MYRBETRIQ EXTENDED RELEASE 25 MG PO (21:32)
[2024-10-20] MEDS: PROTONIX 40 MG PO (21:32)
[2024-10-20] MEDS: LANTUS 0.4 UNITS SC (21:32)
[2024-10-20] MEDS: SINGULAIR 10 MG PO (21:33)
[2024-10-20] MEDS: VESICARE 5 MG PO (21:38)
[2024-10-20] MEDS: NOVOLOG FLEXPEN 5 UNITS SC (22:13)
[2024-10-20 23:00] VITALS: BP 125/71
[2024-10-21] MEDS: MORPHINE SULFATE 1 MG IV (00:02)
[2024-10-21] MEDS: ZOSYN 50 IV ×3 (00:02→12:15)
[2024-10-21 00:29] LABS: Glucose - Point of Care 266 mg/dl (70-99)
--- NOTE | 2024-10-21 04:59 | PTCARENOTE ---
Patient's HS accu check 364. Patient received 40 U Lantus. Order recieved to give 5U Novolog. Will continue to monitor.
[2024-10-21 06:06] LABS: % Basophils 0.3 % (0-2); % Eosinophils 0.3 % (0-6); % Immature Granulocytes 2.9 % (0-0.5); % Lymphocytes 5.1 % (20.5-51.1); % Monocytes 4.5 % (1.7-9.3); % Neutrophils 86.9 % (42.2-75.2); Absolute Basophils 0.1 10^3/uL (0-0.2); Absolute Eosinophils 0.1 10^3/uL (0-0.7); Absolute Immature Granulocytes 0.7 10^3/uL (0-0.05); Absolute Lymphocytes 1.2 10^3/uL (1.2-3.4); Hematocrit 26.4 % (37.0-47.0); Hemoglobin 8.7 g/dL (12.0-16.0); Mean Corpuscular Hgb 26.8 pg (27.0-31.0); Mean Corpuscular Volume 81.2 fL (81.0-99.0); Mean Platelet Volume 8.7 fL (7.4-10.4); Nucleated Red Blood Cells % 0 %; Platelet Count 403 10^3/uL (130-400); Red Blood Cell Count 3.25 10^6/uL (4.20-5.40); Red Cell Dist. Width 13.4 % (11.5-14.5)
[2024-10-21 06:33] LABS: Vancomycin Random 11.4 ug/ml
[2024-10-21 06:43] LABS: ALT (SGPT) < 10 U/L (0-35); AST (SGOT) 14 U/L (14-36); Albumin 2.4 g/dl (3.5-5.0); Alkaline Phosphatase 197 U/L (38-126); Blood Urea Nitrogen 15 mg/dl (7-17); Calcium 8.5 mg/dl (8.4-10.2); Carbon Dioxide 24 mmol/L (22-30); Chloride 96 mmol/L (98-107); Estimated Creatinine Clearance 67 ml/min; Glucose 265 mg/dl (70-99); Magnesium 1.7 mg/dl (1.6-2.3); Potassium 3.7 mmol/L (3.5-5.1); Sodium 130 mmol/L (135-145); Total Bilirubin 0.3 mg/dl (0.2-1.3); Total Protein 6.1 g/dl (6.3-8.2); eGFR > 60.00
--- NOTE | 2024-10-21 07:20 | W.PN.HOSP.TC ---
Addendum entered and electronically signed by Joelle Huston MD 10/21/24 14:59:
I saw and evaluated the patient independently. I reviewed the resident�s note and agree with findings and plan as documented by Dr. Hoang.
GENERAL: well developed, well nourished, pale appearing female in no apparent distress
HEENT: NC/AT
HEART: regular rate and rhythm, +S1, +S2
LUNGS : clear to auscultation bilaterally
ABDOM: soft, nontender, nondistended, + bowel sounds--drain in left groin area
EXT: no cyanosis, clubbing, or edema
NEUROLOGIC: grossly intact
: aguillon with clear urine
Sepsis secondary to left perirenal retroperitoneal abscess in the left psoas muscle/iliopsoas bursa--apprec IR for drainage--urine and wound cultures with strep agalactiae--apprec urology/ID--cont aguillon--change zosyn/vanco to ancef 2gms B8Y--fxdor
WBC count--blood culture with coag neg staph (likely contaminant)
Acute kidney injury secondary to sepsis plus hydronephrosis--cont aguillon---creat back to baseline
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
Pseudohyponatremia --Monitor with IV fluids and blood sugar management--improving
Anemia--likely of chronic disease--iron studies not c/w iron deficiency--Hemoglobin 9.8 test�>8.7, was 12.5 on last admission--denies any bleeding
Asthma--Continue montelukast
GERD--Continue omeprazole
Hyperlipidemia--diet controlled?-- lipid panel with total chol 110, LDL 59
Crohn's disease status post colectomy and J-pouch--likely cause of chronic anemia
code status--Full code
DVT prophylaxis�SCDs
Original Note:
Today's Communication/Plan
-
ID consult
Continue Zosyn/vancomycin
Continue Aguillon
Continue IVF
Assessment / Plan
Assessment / Plan
IMPRESSION: This is a 54-year-old female past medical history of asthma, diabetes, hyperlipidemia, Crohn's disease with J-pouch, GERD, UTIs, right kidney abscess in December of 2022 status post drainage presented to ED for fever, night sweats and pain
in left thigh and groin.
Assessment/Plan:
# Sepsis secondary to left perirenal retroperitoneal abscess in the left psoas muscle/iliopsoas bursa
-Continue IV fluids
-Blood cultures: Gram-positive cocci
-Urine culture: Streptococcus agalactiae
-Zosyn, vancomycin
-IR, urology, consulted, appreciated
- ID consulted pending
-Drainage was done by IR today, purulent fluid sent to lab, left retroperitoneal drainage catheter placed
-Abscess culture: Streptococcus agalactiae
�Diet restarted
�WBC downtrending, monitor temperature curve
-Continue Aguillon catheter
-Continue pain management (Toradol/morphine as needed for moderate and severe pain)
# Acute kidney injury secondary to sepsis
-Monitor with IV fluids
- creatinine returned to baseline
#IDDM
-Continue 40 units of Lantus
-Insulin sliding scale
# Pseudohyponatremia
-Monitor with IV fluids and blood sugar management
# Anemia-?ALIYA
-Hemoglobin 9.8 test�>8.7, was 12.5 on last admission
� Iron panel: Iron 24, TIBC 142, percent saturation 16, ferritin elevated, MCV 81, normal reticulocyte count----> likely more so inflammatory/chronic anemia than ALIYA
-Monitor CBC
-Patient in menopause, denies any postmenopausal bleeding
#Asthma
-Continue montelukast
#GERD
-Continue omeprazole
#Hyperlipidemia
#Crohn's disease status post colectomy and J-pouch
Full code
DVT prophylaxis�SCDs
Anticipated Discharge: 24 - 48 hours
Subjective/Interval History
-
Date of Service: October 21, 2024
Patient has continued pain in the left lower abdomen. 1 episode of fever overnight.
Objective Data
-
Labs:
Laboratory Results
10/21/24
05:25
WBC 23.0 H
Hgb 8.7 L
Hct 26.4 L
Plt Count 403 H
Sodium 130 L
Potassium 3.7
Chloride 96 L
Carbon Dioxide 24
BUN 15
Creatinine 0.8
Glucose 265 H
Calcium 8.5
Total Bilirubin 0.3
AST 14
ALT < 10
Alkaline Phosphatase 197 H
Vital Signs:
Vital Signs
Temp Pulse Resp BP Pulse Ox
98.1 F 96 18 125/71 94
10/21/24 03:30 10/20/24 23:00 10/20/24 23:00 10/20/24 23:00 10/20/24 23:00
I&O
10/20/24 10/21/24 10/22/24
06:59 06:59 06:59
Intake Total 930 / 930
Output Total 2049
Balance -1120 / -1120
Review of Systems
-
Constitutional: Denies Fever
Respiratory: Denies Cough
Cardiac: Denies Chest Pain
Abdomen/GI: Reports Abdominal Pain
Skin: Reports No Symptoms
Neuro: Reports No Symptoms
Physical Exam
-
General: No Apparent Distress
HEENT: Normocephalic
Respiratory: Clear to Auscultation
Cardiac: Regular Rhythm and S1/S2; Negative Murmur
GI: Soft, Nondistended, Tender (Left lower abdomen) and Other (Drain catheter left side abdomen)
Musculoskeletal: No Edema
Skin: Warm and Dry
Neuro: Awake, Alert and Oriented
Psych: Calm
[2024-10-21 07:31] VITALS: BP 120/69
[2024-10-21 07:40] LABS: Glucose - Point of Care 265 mg/dl (70-99)
[2024-10-21] MEDS: NOVOLOG FLEXPEN-LOW RESISTANCE 3 UNITS SC (08:27)
[2024-10-21] MEDS: SYMBICORT 160/4.5 MCG INHALER 2 PUFF INH ×2 (09:05→20:34)
--- NOTE | 2024-10-21 09:35 | PHA.VAN.FU ---
Vancomycin Assessment / Plan
- Assessment
Renal Function: Stable
WBC's are: Trending Down
Concomitant Antimicrobials: piperacillin/tazobactam
- Assessment - Therapeutic Drug Monitoring
Random Level: 11.4 - drawn ~15.5H after previous dose of 1250mg
- Dosing Plan
Dosing by Level: Re-dose today (Vanc 1250mg)
SCR stable and WNL but appears elevated compared to trend 2022 (0.3-0.4) and not sure if at baseline
Patient borderline between Q12 vs Q24
Based on level today - patient maintaining for > 12H but unclear if will maintain for full 24H; however, patient also is not at steady state and may have additional accumulation
Will keep dose by level for today to monitor
- Monitoring Plan
Random Level: 10/22 0600
- Follow Up
Pharmacy will continue to follow.
Vancomycin Follow UP
- -
Patient Age: 54
Patient Sex: Female
Vancomycin Day #: 3
Indication: Gi / Intra-Abdominal
Requesting Provider: Dr. Perez
Pertinent Antimicrobial Allergies:
levofloxacin - Rash/tolerated cipro
metronidazole - Rash
Height / Weight:
Height 5 ft
Actual Weight 62.284 kg
Pertinent Past Medical History: DM 2
- Vital Signs / Lab Results
Temp Pulse Resp BP Pulse Ox
98.4 F 78 16 120/69 97
10/21/24 07:31 10/21/24 09:08 10/21/24 09:08 10/21/24 07:31 10/21/24 09:08
Lab Results - Hematology
10/19/24 10/20/24 10/21/24
11:33 07:02 05:25
WBC 34.4 H 32.9 H 23.0 H
Lab Results - Chemistry
10/19/24 10/19/24 10/20/24
11:33 14:09 07:02
BUN Cancelled 34 H 19 H
Creatinine Cancelled 1.2 H 0.8
Estimated Creat Clear Cancelled 44 67
Albumin Cancelled 3.2 L 2.4 L
10/21/24
05:25
BUN 15
Creatinine 0.8
Estimated Creat Clear 67
Albumin 2.4 L
10/19/24 10/19/24 10/19/24
11:33 15:27 18:45
Lactic Acid 2.0 1.4 Cancelled
Lab Results - Urine
10/19/24
14:09
Urine Nitrite (Reflex) Negative
Leukocyte Esterase Rfl 2+ A
Ur Squamous Epith Cells >30
Microbiology Results
10/19/24 15:27 Blood Culture - Preliminary
Blood/Venous Positive culture in progress
Gram Stain - Preliminary
10/19/24 15:27 Blood Culture - Preliminary
Blood/Venous No Growth in 24 hours- Final report to follow
10/20/24 12:40 Gram Stain - Preliminary
Abscess
10/19/24 14:09 Urine Culture - Final
Urine Streptococcus agalactiae
10/19/24 17:08 Urine Culture - Final
Urine
10/19/24 15:43 Influenza Types A & B (LUIS FELIPE) - Final
Nasal Swab Negative for Influenza A & B, NAAT
Negative results must be combined with clinical observations
and patient history.
Nucleic Acid Amplification test (NAAT)performed on the
[employer] platform.
Therapeutic Drug Monitoring
Random Vancomycin 11.4 ug/ml 10/21/24 05:25
[2024-10-21 09:58] LABS: HDL Cholesterol 17 mg/dl; LDL Cholesterol, Calculated 59 mg/dl; Total Cholesterol 110 mg/dl (50-199); Triglyceride 171 mg/dl (10-149); Very Low Density Lipoprotein 34 mg/dl (0-30)
[2024-10-21] MEDS: VANCOCIN 275 MG IV (10:04)
[2024-10-21] MEDS: TYLENOL 650 MG PO (10:09)
[2024-10-21 11:26] LABS: Glucose - Point of Care 334 mg/dl (70-99)
[2024-10-21] MEDS: NOVOLOG FLEXPEN-LOW RESISTANCE 4 UNITS SC (11:36)
--- NOTE | 2024-10-21 13:54 | CON.ID ---
Consultation
-
Date/Time Consultation Requested: 10/21/2024 0819
Date/Time Consultation Performed: 10/21/2024 1345
Requesting Provider: Dr. Madsen
Performing Provider: Dr. Garcia
Reason for Consultation: Left perirenal abscess
Chief Complaint / Past History
History of Present Illness
Caterina Flores is a 54-year-old female being evaluated at the request of Dr. Madsen regarding a left renal abscess. History is obtained from chart review, along with patient interview.
The patient reports a remote history in 2021 of a right kidney infection which required a prolonged course of antibiotics. Cultures at that time revealed the presence of Klebsiella pneumoniae. Following that infection she has been followed by
Urology at [facility]. She reports she has been well in the interim, but developed a urinary tract infection in early September. At that time she was placed on a course of amoxicillin for 1 week with resolution of symptoms.
She reports the development of night sweats approximately 1 week ago and several days ago developed pain down her left side radiating into her left leg. She presented to the ER when she found her blood sugars to be elevated, and with the
development of fevers to 102.3. Additionally, she developed left-sided abdominal discomfort which became constant at 6/10.
Since admission, she has been found to have a left perirenal abscess, which has been drained by IR. Cultures now reveal the presence of group B strep, and Infectious Diseases is asked to comment upon further antimicrobial therapy.
Past History
Additional Past Medical History:
IDDM
Asthma
Dyslipidemia
GERD
Hx UTIs
Hx right renal abscess (2022)
Additional Past Surgical History:
Bowel resection
J-pouch
Allergy History:
levofloxacin [From Levaquin] Allergy (Verified 10/19/24 11:26)
Rash/tolerated cipro
metronidazole [From Flagyl] Allergy (Verified 10/19/24 11:26)
Rash
Medications Reviewed: Yes
Current Antibiotics:
Vancomycin
Zosyn
Social History
Tobacco: Non-Smoker
Alcohol: None
Drug: None
Personal:
Living: With Family
Employment: Employed
Family History
Family History: Not Pertinent
Review of Systems
Vital Signs
Temp Pulse Resp BP Pulse Ox
98.4 F 78 16 120/69 97
10/21/24 07:31 10/21/24 09:08 10/21/24 09:08 10/21/24 07:31 10/21/24 09:08
Physical Exam
Physical Exam
Constitutional: No Acute Distress, Comfortable and Non-toxic
Eyes: Pupils Equal, Pupils Round, No Conjunctival Hemorrhage and Sclera Anicteric
Oral: No Thrush and No Ulcers
Cardiovascular: Regular Rate and S1/S2; Negative S3/S4
Pulmonary: Clear; Negative Wheezes, Rales or Rhonchi
Gastrointestinal: Soft, Non Tender, Non Distended and Other (Left flank SANDRA drain with purulent fluid)
Genito-Urinary: Petty and Clear Urine; Negative Turbid Urine or Hematuria
Extremities: Negative Edema, Cyanosis or Erythema
Skin: Warm and Dry; Negative Rash or Jaundice
Neurological: Awake and Alert
Psychological: Calm
Lab / Diagnostic Study Results
10/21/24 05:25
10/21/24 05:25
Abs Immat Gran (auto) 0.7 10^3/uL (0-0.05) H 10/21/24 05:25
Absolute Neuts (auto) 20.0 10^3/uL (1.4-6.5) H 10/21/24 05:25
Absolute Lymphs (auto) 1.2 10^3/uL (1.2-3.4) 10/21/24 05:25
Absolute Monos (auto) 1.0 10^3/uL (0.1-0.6) H 10/21/24 05:25
Absolute Basos (auto) 0.1 10^3/uL (0-0.2) 10/21/24 05:25
Immature Gran % 2.9 % (0-0.5) H 10/21/24 05:25
Neutrophils % 86.9 % (42.2-75.2) H 10/21/24 05:25
Lymphocytes % 5.1 % (20.5-51.1) L 10/21/24 05:25
Monocytes % 4.5 % (1.7-9.3) 10/21/24 05:25
Eosinophils % 0.3 % (0-6) 10/21/24 05:25
Basophils % 0.3 % (0-2) 10/21/24 05:25
Lactic Acid Cancelled 10/19/24 18:45
Ur Squamous Epith Cells 6-10 /LPF (Few) 10/19/24 17:08
Microbiology Results
Micro:
10/20/24 12:40 Wound Culture - Preliminary
Abscess Streptococcus agalactiae
Gram Stain - Preliminary
10/19/24 15:27 Blood Culture - Preliminary
Blood/Venous Coagulase neg. staphylococcus
Additional testing on request
Gram Stain - Preliminary
10/19/24 15:27 Blood Culture - Preliminary
Blood/Venous No Growth in 24 hours- Final report to follow
10/19/24 14:09 Urine Culture - Final
Urine Streptococcus agalactiae
10/19/24 17:08 Urine Culture - Final
Urine
10/19/24 15:43 Influenza Types A & B (LUIS FELIPE) - Final
Nasal Swab Negative for Influenza A & B, NAAT
Negative results must be combined with clinical observations
and patient history.
Nucleic Acid Amplification test (NAAT)performed on the
[employer] platform.
Imaging:
10/19/2024 CT abdomen/pelvis with IV contrast: Large 16 cm left perirenal retroperitoneal abscess in the left psoas muscle and iliopsoas bursa extending from the left kidney to the left lesser trochanter. A 2.8 cm left intrarenal abscess is noted.
There is moderate bilateral urothelial thickening and ureteral dilatation. No CT evidence for obstructing ureteral calculus. Moderate hepatosplenomegaly noted.
Assessment / Plan
Left perirenal/retroperitoneal abscess
Left inferior renal abscess
Leukocytosis
DM (uncontrolled; HbA1c = 13)
Functional immunosuppression secondary to above
Asthma
Dyslipidemia
GERD
Hx UTIs
Hx right renal abscess (2022)
Recommendations:
Cultures reviewed and revealed growth of group B strep.
Narrow antibiotics to cefazolin 2 g IV every 8 hours.
Follow white count and temperature curve.
Tight glucose control.
--- NOTE | 2024-10-21 14:54 | CM ---
Patient seen at bedside Patient states that she lives with her mother and father in a ranch style home. Patient has no DME and her PCP is Dr. Garcia and she uses the [facility] in [place] [facility]. Patient is employed at [employer] office.
Patient will need a note to return to work. Patient plan is to go home with no needs. CM will continue to follow for discharge planning needs.
Plan; home with no needs vs home with VN
[2024-10-21 15:31] VITALS: BP 130/60
[2024-10-21] MEDS: ANCEF 10 IV ×2 (15:36→23:53)
--- NOTE | 2024-10-21 15:40 | CONS.URO ---
Consultation
-
Performing Provider: Geoff
Reason for Consultation: Retroperitoneal abscess
Medical History
History of Present Illness
54F admitted for sepsis from left retroperitoneal/renal abscess
Previously known to Dr. Johnson with a history of a similar but right side kidney/perinephric/psoas infection in which required a prolonged course of antibiotics and multiple percutaneous drainage procedures. Cultures at that time
revealed Klebsiella. Following that infection she has been followed by urology at [facility]. She reports she has been well in the interim, but developed a urinary tract infection in early September. At that time she was placed on a
course of amoxicillin for 1 week with resolution of symptoms.
She is currently followed by Dr. Seay at [facility] for bladder dysfunction, hydronephrosis, and ureteral reflux
He had previously discussed surgery options like neuromodulation or bladder augment
Currently she is on myrbetriq and solifenacin and voiding spontaneously, but had in recent months past had indwelling aguillon catheter
She reports the development of night sweats approximately 1 week prior to admission and several days ago developed pain down her left side radiating into her left leg. She presented to the ER when she found her blood sugars to be elevated, and with
the development of fevers to 102.3. Additionally, she developed left-sided abdominal discomfort which became constant at 6/10.
CT on admission showed a large left perirenal abscess, which has been drained by IR. The smaller renal abscess seen on initial CT was not able to be visualized or drained
Wound cultures reveal the presence of group B strep
Leukocytosis is resolving and one low grade fever last night
Pain improved
Past Medical History
Past Medical History: Other (asthma, diabetes, hyperlipidemia, Crohn's disease with J-pouch, GERD, UTIs, right kidney abscess)
Past Surgical History: Other (Colectomy, J pouch)
Social History
Tobacco: Non-smoker
Alcohol: None
Drug: None
Family History
Family History: Reviewed & Not Pertinent
Allergies/Home Medications
Allergies
Allergy/AdvReac Type Severity Reaction Status Date / Time
levofloxacin [From Levaquin] Allergy Rash/tolerated Verified 10/19/24 11:26
cipro
metronidazole [From Flagyl] Allergy Rash Verified 10/19/24 11:26
Home Medications
�Medication �Instructions �Recorded �Confirmed �Type
loperamide 2 mg capsule 12 mg PO HS Gastrointestinal issue 01/07/17 10/19/24 History
omeprazole 20 mg capsule,delayed 20 mg PO HS Gastrointestinal issue 01/07/17 10/19/24 History
release
insulin glargine 100 unit/mL (3 40 unit SC HS Diabetes 06/12/22 10/19/24 History
mL) subcutaneous pen (Lantus
Solostar U-100 Insulin)
montelukast 10 mg tablet 10 mg PO HS Allergies 06/12/22 10/19/24 History
(Singulair)
ergocalciferol (vitamin D2) 1,250 1,250 mcg PO SENA Supplement 07/11/22 10/19/24 History
mcg (50,000 unit) capsule
mirabegron 25 mg tablet,extended 25 mg PO HS Urinary Issue 06/25/23 10/19/24 History
release 24 hr (Myrbetriq)
solifenacin 5 mg tablet 5 mg PO HS Urinary Issue 06/25/23 10/19/24 History
Physical Exam
Vital Signs
Vital Signs
Temp Pulse Resp BP Pulse Ox
97.5 F 87 16 130/60 97
10/21/24 15:31 10/21/24 15:31 10/21/24 15:31 10/21/24 15:31 10/21/24 15:31
Lab / Testing Results
Laboratory Results
10/21/24 05:25
10/21/24 05:25
Physical Exam
General: Well Developed, Well Nourished and No Apparent Distress
Respiratory: Clear and Non Labored Respirations
GI: Soft, Non Tender, Non Distended and Other (drain in place, purulent)
Genito-urinary: No Costovertebral Tend
Psych: Calm and Intact Judgement
Assessment / Plan
-
54F with poorly controlled diabetes, prior history of spontaneous and recurrent right retroperitoneal abscess requiring extended antibiotic course and repeat drainage procedures in 2022
Recent workup and evaluation at [facility] for poor bladder emptying and ureteral reflux
Presenting with sepsis from large left retroperitoneal and small renal abscess
s/p percutaneous drainage of retroperitoneal abscess
-Continue abx course narrowed by culture per ID
-Recommend repeat imaging with contrast enhanced CT abdomen in about 48 hours
-Given prior recurrent abscess on the contralateral side, will recommend maintaining the drain at discharge until well healed and repeat imaging shows resolution
-Consider extended abx course to help prevent recurrence
-Given history of ureteral reflux and poor bladder compliance, recommend discharge with aguillon catheter in place
-Continue myrbetriq and solifenacin
-Follow up with Dr. Seay to discuss bladder emptying and catheter management
Needs better blood glucose control as this is her primary risk factor
Data Reviewed
-
CT Scan: Image personally visualized and interpreted
Lab Data: Labs Reviewed
Old Records: Reviewed
[2024-10-21 16:40] LABS: Glucose - Point of Care 387 mg/dl (70-99)
[2024-10-21] MEDS: NOVOLOG FLEXPEN-LOW RESISTANCE 5 UNITS SC (16:51)
[2024-10-21 21:34] LABS: Glucose - Point of Care 301 mg/dl (70-99)
[2024-10-21] MEDS: LANTUS 0.4 UNITS SC (22:09)
[2024-10-21] MEDS: MYRBETRIQ EXTENDED RELEASE 25 MG PO (22:10)
[2024-10-21] MEDS: VESICARE 5 MG PO (22:10)
[2024-10-21] MEDS: PROTONIX 40 MG PO (22:10)
[2024-10-21] MEDS: SINGULAIR 10 MG PO (22:11)
[2024-10-21] MEDS: TORADOL 15 MG IV (22:19)
[2024-10-21 22:33] VITALS: BP 121/67
[2024-10-22] MEDS: TYLENOL 650 MG PO (03:51)
[2024-10-22] MEDS: ZOFRAN 4 MG IV (05:14)
--- NOTE | 2024-10-22 07:17 | PN.DE.MGMTRT ---
Insulin Management
- -
10/22/2024 Diabetes Management Consult
Patient admitted 10/19 with Blood sugar problem, found to have L retroperitoneal abscess. PMH Asthma, HLD, Crohns with J pouch, GERD, Colectomy, UTI's, kidney abscess. Patient just finished course of Augmentin for UTI recently. Prior to admission
was taking 40 units lantus @ HS. A1C is 13%, cr .8, eGFR > 60.
Patient is awake alert and oriented resting in bed. Able to discuss diabetes care plan. States she has had diabetes 15 years, has seen Lemuel AMOS in the past but has lost confidence in him. States he told her she would benefit from an
insulin pump which she agreed to but at the next visit he started her on sliding scale insulin. Suggested she ask for appointment with Dr. Caldera or Alanna as she is adamant she see a doctor.
Patient has been receiving 40 units lantus @ hs with low corrective. Glucose range 265 to 387. 2200 calorie diet ordered. Patient is 5', will reduce diet to 1800 calories. With A1C of 13 on admission will require AC novolog at discharge. Will
start 5 units AC and continue low corrective insulin.
Discussed with patients nurse.
Will follow
Diabetes History
- -
Type of Diabetes: 2 requiring insulin
Pre-Admission Diabetes Regimen
Lab Results
Hemoglobin A1c 13.0 % (4.0-5.6) H 10/20/24 07:02
Insulin Pump Settings
IP Diabetes Regimen
10/21/24 10/21/24 10/21/24
07:37 11:24 16:38
POC Glucose 265 H 334 H 387 H
10/21/24
21:33
POC Glucose 301 H
Meal type: Dinner
Meal type: Lunch
Meal type: Breakfast
Amount consumed: 100%
Amount consumed: 100%
Amount consumed: 100%
Patient Education
--- NOTE | 2024-10-22 07:33 | W.PN.HOSP.TC ---
Addendum entered and electronically signed by Joelle Huston MD 10/22/24 16:05:
I saw and evaluated the patient independently. I reviewed the resident�s note and agree with findings and plan as documented by Dr. Hoang.
GENERAL: well developed, well nourished, pale appearing female in no apparent distress
HEENT: NC/AT
HEART: regular rate and rhythm, +S1, +S2
LUNGS : clear to auscultation bilaterally
ABDOM: soft, nontender, nondistended, + bowel sounds--drain in left groin area--left femoral LAD
EXT: no cyanosis, clubbing, or edema
NEUROLOGIC: grossly intact
: aguillon with clear urine
Sepsis secondary to left perirenal retroperitoneal abscess in the left psoas muscle/iliopsoas bursa--apprec IR for drainage--urine and wound cultures with strep agalactiae--apprec urology/ID--cont aguillon--change zosyn/vanco to ancef 2gms Q8H to
rocephin 2 gms H13Y--pmyvo WBC count--blood culture with coag neg staph (likely contaminant)
Acute kidney injury secondary to sepsis plus hydronephrosis--cont aguillon---creat back to baseline
Type 2 IDDM--Continue 40 units of Lantus--Insulin sliding scale-- HGB A1C 13 (not well controlled)--apprec DM [facility] MED[facility] EMT
Pseudohyponatremia --Monitor with IV fluids and blood sugar management--improving
Anemia--likely of chronic disease--iron studies not c/w iron deficiency--Hemoglobin 9.8 test�>8.7, was 12.5 on last admission--denies any bleeding
Asthma--Continue montelukast
GERD--Continue omeprazole
Hyperlipidemia--diet controlled?-- lipid panel with total chol 110, LDL 59
Crohn's disease status post colectomy and J-pouch--likely cause of chronic anemia
code status--Full code
DVT prophylaxis�SCDs
ok for d/c with aguillon and drain
Original Note:
Today's Communication/Plan
-
Transition to IV ceftriaxone to be continued on discharge as per ID
Continue Aguillon on discharge
Continue diabetic management
Assessment / Plan
Assessment / Plan
IMPRESSION: This is a 54-year-old female past medical history of asthma, diabetes, hyperlipidemia, Crohn's disease with J-pouch, GERD, UTIs, right kidney abscess in December of 2022 status post drainage presented to ED for fever, night sweats and pain
in left thigh and groin.
Assessment/Plan:
# Sepsis secondary to left perirenal retroperitoneal abscess in the left psoas muscle/iliopsoas bursa
-Continue IV fluids
-Urine culture: Streptococcus agalactiae
-Zosyn, vancomycin discontinued
� Antibiotics narrowed to IV cefazolin will transition to IV ceftriaxone upon discharge as per ID
-IR, urology, consulted, appreciated
- ID consulted pending
-Drainage was done by IR, purulent fluid sent to lab, left retroperitoneal drainage catheter placed outpatient follow-up with urology for further care
-Abscess culture: Streptococcus agalactiae
�WBC downtrending, monitor temperature curve
-Continue Aguillon catheter on discharge, outpatient follow-up with urology
-Continue pain management
-Dispo pending to home today
# Acute kidney injury secondary to sepsis
�Resolved
- creatinine returned to baseline
#IDDM
-Continue 40 units of Lantus
-Diabetic nurse practitioner consulted, started on aspart 5 units
-Insulin sliding scale
# Pseudohyponatremia
-Monitor with IV fluids and blood sugar management
# Anemia-likely chronic anemia
-Hemoglobin 9.8 test�>8.7, was 12.5 on last admission
� Iron panel: Iron 24, TIBC 142, percent saturation 16, ferritin elevated, MCV 81, normal reticulocyte count----> likely more so inflammatory/chronic anemia than ALIYA
-Monitor CBC
-Patient in menopause, denies any postmenopausal bleeding
#Asthma
-Continue montelukast
#GERD
-Continue omeprazole
#Hyperlipidemia
#Crohn's disease status post colectomy and J-pouch
Full code
DVT prophylaxis�SCDs
Anticipated Discharge: Within 24 hours
Subjective/Interval History
-
Date of Service: October 22, 2024
Patient denies any nausea, vomiting or fever.
Objective Data
-
Labs:
Laboratory Results
10/22/24
07:22
WBC Pending
Hgb Pending
Hct Pending
Plt Count Pending
Sodium Pending
Potassium Pending
Chloride Pending
Carbon Dioxide Pending
BUN Pending
Creatinine Pending
Glucose Pending
Calcium Pending
Total Bilirubin Pending
AST Pending
ALT Pending
Alkaline Phosphatase Pending
Vital Signs:
Vital Signs
Temp Pulse Resp BP Pulse Ox
98.5 F 102 22 121/67 98
10/21/24 22:33 10/21/24 22:33 10/21/24 22:33 10/21/24 22:33 10/21/24 22:33
I&O
10/21/24 10/22/24 10/23/24
06:59 06:59 06:59
Intake Total 930 / 930 1030 / 1030
Output Total 2049 1425 / 1425
Balance -1120 / -1120 -395 / -395
Review of Systems
-
All other systems: Reviewed and negative
Physical Exam
-
General: No Apparent Distress
Respiratory: Clear to Auscultation
Cardiac: Regular Rhythm and S1/S2; Negative Murmur
GI: Soft, Nontender and Nondistended
Musculoskeletal: No Edema
Skin: Warm and Dry
[2024-10-22 07:58] LABS: % Basophils 0.4 % (0-2); % Eosinophils 0.2 % (0-6); % Immature Granulocytes 3.7 % (0-0.5); % Lymphocytes 7.7 % (20.5-51.1); % Monocytes 5.8 % (1.7-9.3); % Neutrophils 82.2 % (42.2-75.2); Absolute Basophils 0.1 10^3/uL (0-0.2); Absolute Immature Granulocytes 0.7 10^3/uL (0-0.05); Absolute Lymphocytes 1.5 10^3/uL (1.2-3.4); Absolute Monocytes 1.1 10^3/uL (0.1-0.6); Absolute Neutrophils 16.2 10^3/uL (1.4-6.5); Hematocrit 25.1 % (37.0-47.0); Hemoglobin 8.4 g/dL (12.0-16.0); Mean Corp Hgb Conc. 33.5 g/dL (33.0-37.0); Mean Corpuscular Hgb 26.8 pg (27.0-31.0); Mean Corpuscular Volume 80.2 fL (81.0-99.0); Mean Platelet Volume 8.6 fL (7.4-10.4); Nucleated Red Blood Cells % 0 %; Platelet Count 412 10^3/uL (130-400); Red Blood Cell Count 3.13 10^6/uL (4.20-5.40); Red Cell Dist. Width 13.6 % (11.5-14.5); White Blood Cell Count 19.6 10^3/uL (4.8-10.8)
[2024-10-22 08:00] VITALS: BP 130/74
[2024-10-22 08:19] LABS: Glucose - Point of Care 254 mg/dl (70-99)
[2024-10-22 08:27] LABS: ALT (SGPT) < 10 U/L (0-35); AST (SGOT) 14 U/L (14-36); Albumin 2.3 g/dl (3.5-5.0); Alkaline Phosphatase 169 U/L (38-126); Blood Urea Nitrogen 15 mg/dl (7-17); Calcium 8.6 mg/dl (8.4-10.2); Carbon Dioxide 27 mmol/L (22-30); Chloride 97 mmol/L (98-107); Estimated Creatinine Clearance 77 ml/min; Glucose 241 mg/dl (70-99); Potassium 3.2 mmol/L (3.5-5.1); Sodium 132 mmol/L (135-145); Total Bilirubin 0.1 mg/dl (0.2-1.3); eGFR > 60.00
[2024-10-22] MEDS: KCL 40 MEQ PO (08:57)
[2024-10-22] MEDS: ANCEF 10 IV (08:57)
[2024-10-22] MEDS: SYMBICORT 160/4.5 MCG INHALER 2 PUFF INH (09:04)
--- NOTE | 2024-10-22 09:44 | CM ---
Addendum entered by Dora Argueta 10/22/24 13:25:
Referral to [facility] for SANDRA drain and aguillon care, sent via all scripts. [facility] is covered 100% and franchise sales representative will be in to get teaching later this afternoon. Awaiting response from [facility]. CM will continue to follow for discharge planning.
Original Note:
CM faxed IV antibiotic information to [facility]; pending cost and ability to start. CM will update patient and await update from [facility]. Plan discharge home with VN and IV antibiotics. CM will continue to follow for discharge plannig needs.
Plan; home with VN and IV antibiotics
--- NOTE | 2024-10-22 10:30 | W.PN.ID1 ---
Date of Service
Date of Service: October 22, 2024
Today's Communication
Continue abx.
Assessment / Plan
Left perirenal/retroperitoneal abscess 2* GBS
Left inferior renal abscess
Leukocytosis
DM (uncontrolled; HbA1c = 13)
Functional immunosuppression secondary to above
Asthma
Dyslipidemia
GERD
Hx UTIs
Hx right renal abscess (2022)
Recommendations:
Cultures reviewed and revealed growth of Group B strep.
Anticipated D/C within next 24-48h.
Transition to once daily rocephin 2 gm IV
Home infusion sheet completed and given to
Place PICC
Follow weekly labs (BMP / CBC)
Follow-up in office in 2-3 weeks.
����������������������������������������������������������
Chief Complaint
-: UTI and Other (perirenal abscess)
Subjective / Review of Systems
Review of Systems: No Fever and No Chills
Vital Signs / Physical Exam
Vital Signs
Vital Signs
Temp Pulse Resp BP Pulse Ox
97.6 F 74 18 130/74 98
10/22/24 08:00 10/22/24 09:06 10/22/24 09:06 10/22/24 08:00 10/22/24 09:06
Physical Exam
Constitutional: No Acute Distress, Comfortable and Non-toxic
Eyes: No Conjunctival Hemorrhage and Sclera Anicteric
Cardiovascular: S1/S2; Negative S3/S4
Pulmonary: Non Labored
Gastrointestinal: Soft, Non Tender and Non Distended
Genito-Urinary: Petty (urine slightly cloudy) and Other (left flank SANDRA with purulent drainage.)
Extremities: Edema (trace)
Neurological: Awake and Alert
Psychological: Calm
Objective Data
Lab Data
Lab Results
10/22/24 07:22
10/22/24 07:22
Estimated Creat Clear 77 ml/min 10/22/24 07:22
Lactic Acid Cancelled 10/19/24 18:45
Total Bilirubin 0.1 mg/dl (0.2-1.3) L 10/22/24 07:22
AST 14 U/L (14-36) 10/22/24 07:22
ALT < 10 U/L (0-35) 10/22/24 07:22
Alkaline Phosphatase 169 U/L (38-126) H 10/22/24 07:22
Most recent labs reviewed.
Micro Results:
10/19/24 15:27 Blood Culture - Preliminary
Blood/Venous No Growth in 48 hours- Final report to follow
10/20/24 12:40 Wound Culture - Preliminary
Abscess Streptococcus agalactiae
Gram Stain - Preliminary
10/19/24 15:27 Blood Culture - Preliminary
Blood/Venous Coagulase neg. staphylococcus
Additional testing on request
Gram Stain - Preliminary
10/19/24 14:09 Urine Culture - Final
Urine Streptococcus agalactiae
10/19/24 17:08 Urine Culture - Final
Urine
10/19/24 15:43 Influenza Types A & B (LUIS FELIPE) - Final
Nasal Swab Negative for Influenza A & B, NAAT
Negative results must be combined with clinical observations
and patient history.
Nucleic Acid Amplification test (NAAT)performed on the
[employer] platform.
Imaging:
10/19/2024 CT abdomen/pelvis with IV contrast: Large 16 cm left perirenal retroperitoneal abscess in the left psoas muscle and iliopsoas bursa extending from the left kidney to the left lesser trochanter. A 2.8 cm left intrarenal abscess is noted.
There is moderate bilateral urothelial thickening and ureteral dilatation. No CT evidence for obstructing ureteral calculus. Moderate hepatosplenomegaly noted.
Care Review
Plan reviewed with: Physician (Hospitalist)
[2024-10-22] MEDS: ROCEPHIN 2000 MG IV (10:42)
[2024-10-22] MEDS: STERILE WATER FOR INJECTION 20 ML IV (10:43)
[2024-10-22] MEDS: NOVOLOG FLEXPEN-LOW RESISTANCE 3 UNITS SC (10:45)
[2024-10-22] MEDS: NOVOLOG FLEXPEN 5 UNITS SC ×2 (10:45→14:44)
[2024-10-22 11:16] LABS: Transferrin 90 mg/dL (200-360)
[2024-10-22 14:32] LABS: Glucose - Point of Care 236 mg/dl (70-99)
[2024-10-22] MEDS: MOTRIN 600 MG PO (14:43)
[2024-10-22] MEDS: NOVOLOG FLEXPEN-LOW RESISTANCE 2 UNITS SC (14:44)
--- NOTE | 2024-10-22 14:57 | W.PN.URO.CBU ---
Today's Communication / Plan
-
Stable for discharge from urology standpoint
Discharge with drain and aguillon in place
Assessment / Plan
-
54F with poorly controlled diabetes, prior history of spontaneous and recurrent right retroperitoneal abscess requiring extended antibiotic course and repeat drainage procedures in 2022
Recent workup and evaluation at [facility] for poor bladder emptying and ureteral reflux
Presenting with sepsis from large left retroperitoneal and small renal abscess
s/p percutaneous drainage of retroperitoneal abscess
-Continue abx course narrowed by culture per ID - IV cephalosporin
-Recommend repeat imaging with contrast enhanced CT in 1-2 weeks and prior to drain removal
-Given prior recurrent abscesses on the contralateral side, will recommend maintaining the drain at discharge until well healed and repeat imaging shows resolution
-Given history of ureteral reflux and poor bladder compliance, recommend discharge with aguillon catheter in place
-Continue myrbetriq and solifenacin
-Follow up with Dr. Seay to discuss bladder emptying and catheter management, drain removal
Needs better blood glucose control as this is likely her primary risk factor
Advised she seek eval with the / in her endocrinology office
Diagnosis
-
Date of Service: October 22, 2024
-
Patient Diagnosis:
Retroperitoneal abscess
Sepsis
Bladder dysfunction
Post Op Day:
Subjective
-
feeling well
fevers resolved
Objective
-
Vital Signs
Temp Pulse Resp BP Pulse Ox
97.6 F 74 18 130/74 98
10/22/24 08:00 10/22/24 09:06 10/22/24 09:06 10/22/24 08:00 10/22/24 09:06
Intake and Output
10/21/24 10/22/24 10/23/24
06:59 06:59 06:59
Intake Total 930 / 930 1030 / 1030
Output Total 2050 / 2050 1425 / 1425
Balance -1120 / -1120 -395 / -395
Intake:
Oral fluids 720 / 720 1020 / 1020
IV fluids (Total) 200 / 200
NSS 200 / 200
Amount instilled into Drain (
Total)
Left Middle Back Jeremie-Ricketts
Placed in IR
Output:
Drain Output (Total)
Left Middle Back Jeremie-Ricketts
Placed in IR
Urine, Aguillon 1900 / 1900 1400 / 1400
Urine, Voided 150 / 150
Other:
Number of approximated MODERATE 1
amounts of urine
How many times incontinent 3
MODERATE amount urine
Laboratory Results
10/22/24 07:22
10/22/24 07:22
Physical Exam
-
General - well developed, well nourished, no acute distress
Chest - clear bilaterally
Abdomen - soft, non-tender
drain in place
--- NOTE | 2024-10-22 15:14 | PTCARENOTE ---
patient medicated with PRN Motrin for c/o left groin/thigh pain upon standing/ambulating. tolerating diet, independent to BR, SANDRA drain with purulent drainag and Petty with slightly cloudy urine, vss, for discharge to home today with IV antibiotics,
will continue to monitor.
[2024-10-22 16:00] VITALS: BP 116/67
--- NOTE | 2024-10-22 16:08 | W.DCSUMMARY ---
Addendum entered and electronically signed by Joelle Huston MD 10/22/24 17:37:
Read, reviewed, and agree. See same day progress note for additional details. Time spent coordinating care, DC planning, review of DC plan of care with resident, transition of care, review of records in EMR, med rec, consults, notes, d/w
consultants, nursing, family, and CM = 37 minutes
Original Note:
Discharge Summary
Discharge Data
Date of Admission: 10/19/24
Date of Discharge: 10/22/24
-
Pending Results: No
Hospital Course
Discharging Physician : Dr. Huston,
Disposition : Home with visiting nurses
Primary care physician : Dr. Garcia
Principal Discharge diagnosis : Left perirenal/retroperitoneal abscess
Chronic Discharge diagnosis : Insulin Dependent Diabetes Mellitus, Asthma, Dyslipidemia, Gastroesophageal reflux disease, History of Urinary Tract Infections, History of right renal abscess (2022)
Hospital Course : This is a 54-year-old female patient with PMH of asthma, diabetes, hyperlipidemia, Crohn's disease with J-pouch, GERD, Hx of UTIs, right kidney abscess in December/2022 SP drainage who presented to the ED for fever, left lower
abdominal pain and night sweats for a week. CT of abdomen showed perirenal/retroperitoneal abscess in left kidney. Urology was consulted and Petty catheter placed. She was started on IV Zosyn and vancomycin. Interventional radiology was
consulted for CT-guided drainage catheter placement for abscess. Abscess culture revealed growth of group B strep and antibiotics were narrowed to cefazolin. Diabetes was uncontrolled on patient's home regimen and insulin aspart was added by
diabetic LPN PER DIEM. Workup was done for patient's low hemoglobin which revealed anemia of likely chronic disease. Patient started to clinically improve with pain management and WBC count was downtrending. Patient was stable for discharge with IV
antibiotics to be continued at home along with visiting nurses for drain in left lower abdomen care. Patient was also advised to follow-up with urology outpatient for further Petty management.
Important imaging findings :
10/19/2024 CXR: No radiographic evidence for pneumonia, pleural effusion or acute pulmonary edema. Moderate bilateral osteoarthritis and glenohumeral joints.
10/19/2024 abdomen/pelvis CT:
1. LARGE 16 cm LEFT PERIRENAL RETROPERITONEAL ABSCESS in the left psoas muscle and iliopsoas bursa extending from the left kidney to the left lesser trochanter.
2. 2.8 cm LEFT INTRARENAL ABSCESS in the lateral cortex of the left kidney.
3. Moderate bilateral urothelial thickening and ureteral distention suggesting acute ureteritis bilateral ascending urinary tract infection. No CT evidence for obstructing ureteral calculus.
4. Mild diffuse urinary bladder wall thickening suggesting acute cystitis.
5. Moderate hepatosplenomegaly.
6. Cholelithiasis.
7. Mild biliary dilatation.
8. Previous total colectomy and J-pouch reconstruction.
Procedure findings :
10/20/2024: CT guided retroperitoneal abscess drainage: CT guided drainage catheter placement into a retroperitoneal abscess, yielding 45 mL of grossly purulent fluid.
Discharge Plan
-
Patient Disposition: Home (Routine Discharge)
Discharge Diagnosis/Procedures: Left perirenal/retroperitoneal abscess
Insulin Dependent Diabetes Mellitus
Asthma
Dyslipidemia
Gastroesophageal reflux disease
History of Urinary Tract Infections
History of right renal abscess (2022)
Condition: Fair
Diet: Diabetic, Carb Controlled
Driving Restrictions: As prior to admission
Other Services: VN
Activity Restrictions/Additional Instructions:
If experiencing any worsening abdominal pain, high grade fevers or vomiting please return to ER.
Follow up with family doctor within a week.
Follow up with Urologist/Interventional Radiology for further management of drain, will need to be kept for usually a week/visiting nurses for drain care.
Referrals:
Neeraj Seay MD [Non-Admitting Privileges] - in one week
Lokesh Garcia DO [Family Provider] - in less than 1 week
Prescriptions:
New
insulin aspart U-100 100 unit/mL (3 mL) Insulin Pen
5 unit SC AC Qty: 15 0RF
ceftriaxone 2 gram Recon Soln
2,000 mg IV Q24H Qty: 0 0RF
Continued
loperamide 2 MG capsule
12 mg PO HS
omeprazole 20 MG capsule,delayed release(DR/EC)
20 mg PO HS
montelukast [Singulair] 10 mg Tablet
10 mg PO HS
insulin glargine [Lantus Solostar U-100 Insulin] 100 unit/mL (3 mL) Insulin Pen
40 unit SC HS
ergocalciferol (vitamin D2) 1,250 mcg (50,000 unit) capsule
1,250 mcg PO SENA
solifenacin 5 mg Tablet
5 mg PO HS
mirabegron [Myrbetriq] 25 mg Tablet Extended Release 24 Hr
25 mg PO HS
Discharge Orders:
Discharge Patient (As Directed); Ordered 10/22/24
Ordered By: Rebeca Hoang
Discharge Date and Time
Print Language: SLOVAK
== END 2024-10-22 17:11 | disposition home health service (06) | DRG 871 ==
LOC: 3 WEST ACU 19:00
PROVIDERS: Emergency Medicine; Radiology Vascular & Interventional Radiology; Registered Nurse; Student in an Organized Health Care Education/Training Program; ADMITTING PHYSICIAN Hospitalist; ATTENDING PHYSICIAN Internal Medicine; CONSULT PHYSICIAN Internal Medicine Infectious Disease; CONSULT PHYSICIAN Urology; EMERGENCY PHYSICIAN Emergency Medicine; FAMILY PHYSICIAN Family Medicine
PROC: 0W9H3ZZ Drainage of Retroperitoneum, Percutaneous Approach (ICD-10-PCS; 2024-10-20)
DX: A41.9 Sepsis, unspecified organism (principal); K68.19 Other retroperitoneal abscess; N17.9 Acute kidney failure, unspecified; K50.90 Crohn's disease, unspecified, without complications; E11.65 Type 2 diabetes mellitus with hyperglycemia; E78.00 Pure hypercholesterolemia, unspecified; K21.9 Gastro-esophageal reflux disease without esophagitis; D63.8 Anemia in other chronic diseases classified elsewhere; J45.998 Other asthma; B95.4 Other streptococcus as the cause of diseases classified elsewhere; Z79.4 Long term (current) use of insulin; Z87.440 Personal history of urinary (tract) infections
CPT/HCPCS: 49406; 71046; 74177; 76705; 80053; 80061; 80202; 81003; 81015; 82010; 82728; 82962; 83036; 83540; 83550; 83605; 83735; 84466; 84703; 85025; 85045; 87040; 87070; 87077; 87086; 87147; 87205; 87502; 87811; 94640; 96361; 96374; 96375; 99152; 99285; C1729; C1769; Q9967

== ENCOUNTER → 2024-11-18 16:58 | Outpatient (REF) | payer OTHER, SELFPAY | LOC: RAD 16:58 | PROVIDERS: ATTENDING PHYSICIAN Family Medicine; FAMILY PHYSICIAN Family Medicine | DX: N15.1 Renal and perinephric abscess (principal) | CPT/HCPCS: 74177; Q9967 ==

== ENCOUNTER → 2024-11-25 10:12 | Outpatient (REF) | payer OTHER, SELFPAY ==
[2024-11-25 10:25] VITALS: BP 138/77; BP_SYST 80
== END ==
LOC: RADI 10:12
PROVIDERS: ATTENDING PHYSICIAN Internal Medicine Infectious Disease; FAMILY PHYSICIAN Family Medicine
DX: N15.1 Renal and perinephric abscess (principal)
CPT/HCPCS: 36573; C1751

== ENCOUNTER 2024-11-25 11:43 | Outpatient (RCR) | payer OTHER, SELFPAY ==
[2024-11-25 12:00] VITALS: BP 128/74
[2024-11-25] MEDS: ROCEPHIN 70 MG IV (12:06)
[2024-11-25 12:45] VITALS: BP 119/71
== END 2024-12-17 23:59 | disposition home or self-care (01) ==
LOC: OID 11:43
PROVIDERS: ATTENDING PHYSICIAN Internal Medicine Infectious Disease; FAMILY PHYSICIAN Family Medicine
DX: N15.1 Renal and perinephric abscess (principal)
CPT/HCPCS: 36573; 96365; C1751

== ENCOUNTER → 2024-12-20 16:48 | Outpatient (REF) | payer OTHER, SELFPAY | LOC: RAD 16:48 | PROVIDERS: ATTENDING PHYSICIAN Urology; FAMILY PHYSICIAN Family Medicine | DX: N15.1 Renal and perinephric abscess (principal); K68.19 Other retroperitoneal abscess; K68.12 Psoas muscle abscess | CPT/HCPCS: 74177; Q9967 ==

== ENCOUNTER → 2025-01-24 08:18 | Outpatient (REF) | payer OTHER, SELFPAY ==
--- NOTE | 2024-12-27 16:03 | PN.DIAED02 ---
Referral
DSME Class Series Code: [id number]
Referred For: Diabetes Self-Management Training, Medical Nutrition Therapy, Self-Blood Glucose Monitoring, Long-Term Complication Instruction, Accute Complication Instruction, Continuous Glucose Monitoring, Medication management, Insulin
Instruction, Care Coordination, Disease Management
PHI Release Authorization Form Signed: Yes
Patient Problems:
Current Active Problems
Problem Status Onset
Type 2 diabetes mellitus with hyperglycemia
Demographic
(1) Type 2 diabetes mellitus with hyperglycemia
Status: Chronic Code(s): E11.65 - Type 2 diabetes mellitus with hyperglycemia
Patient's primary language-: [place]
Education: Some college
Occupation: Professional
Hours Worked/Week: 20-40
Shift: Day
- Social
Primary Support Person: Self
Primary Care Takers: Self
Living Arrangements: Self & spouse, Family
- Learning Methods
Preferred Method: Reading
Barriers to Learning: None
Glycemic Control
- Blood Glucose Monitoring Assessment
Blood glucose monitoring at home: Yes ([employer] sha 2)
Monitor Brands: [employer]
Frequency: 2x per day (scans sha sensor appx 2 times daily)
Time: fasting, bedtime
- Hypoglycemia Assessment
Patient carries glucose source: No (reviewed rule of 15 and encouraged carrying glucose at all times)
Patient experiences hypoglycemia: Yes
Frequency: rarely
Treatment: juice
History of Hypoglycemia Unawareness: No
- Hemoglobin A1c
Date: 10/20/24
A1C Percentage (%): 13
Medical History of Diabetes
Family Diabetes History: Mother, Father, Sibling
Previous Diabetes Education: Yes
How long ago?: 1-5 years ago
Previous visit with Dietitian: No
Complications/Comorbidity/Specialist: Gastrointestinal disease (chrons disease & Gerd (loperamide 12 mg daily, Omeprazole), Kidney / bladder disease (currently has her 4th kidney infection, plan for bladder removal surgery in February; Mirabegron 50 mg
daily, solifenacin 5 mg daily), Pulmonary disease (asthma (Montelukast 10 mg daily))
Current Home Medication
- Insulin Management
Patient adjusts own insulin dosages: No
Patient has access to glucagon: No (reviwed hypoglycemia treatment and recc contacting MD for prescription )
- Insulin Types
Lantus
Insulin Injection Site: Rotates
Administration Type: SoloSTAR (injects 40 units daily at bedtime)
Humalog
Insulin Injection Site: Rotates
Administration Type: Humalog KwikPen (injects 5 units before meals)
Measures
- Anthropometrics
Height: 5 ft
Actual Weight: 148 lb 9.6 oz
- Blood Pressure / Pulse
Blood pressure: 134/78
Pulse: 84
- Diabetes Management
Medical Management for Diabetes: Complete physical exam (07-04-2024), Dental exam (12-28-2019), Dilated eye exam (07-04-23 (Discussed importance of scheduling for a new appt prior to class starting)), Pneumonia vaccination (01-18-20), Other (10-06-21
Covid booster)
Self-Care
- Tobacco Usage
Do you now, or have you ever smoked?: Never smoked
- Alcohol & Drugs Usage
Drinks Alcohol: No
- Meals & Dining
Meals & Dining: Patient skips meals: No, Food Intolerance / Allergy: No, Cultural / Spiritism Dietary Needs: No
Primary Food Cat And Dog Bather: Self
Primary Recycling Collections Driver: Self
Dining Out Frequency: Never
- Physical Activity
Physical Limitation: Yes (PICC line in righ arm, urinary catheter, SANDRA drain in left kidney)
Patient participates in physical Activity: No
- Self Foot-Care
Foot Problems: None
Performs Self Foot-Exam: Yes
Frequency: Occationally
- Patient-Self Assessment
Diabetes Knowledge: Good
Feelings About Diabetes: Overwhelmed / Confused
Stress Level: Medium
Diabetes Interferes With:: Nothing
Depression Survey Score: 0
- Diabetes Identification
Carries Diabetes Identification: No
Diabetes Identification Information Provided: Yes
Care Plan
- Education Needs
Patient Education Needs: Diabetes disease process, Chronic complications, Acute complications, Medication, Monitoring, Physical activity, Psychosocial Adjustment, Nutritional management, Goal setting & problem solving
Recommended Diabetes Training Program based on assessment: Outpatient Diabetes Education Program
- Plan of Care
Plan of Care:
Caterina was diagnosed with diabetes 15 years ago and participated in a diabetes education program after diagnosis. She currently has a kidney infection (her 4th in in the past year) and is planning to have her bladder removed in February. She has a urinary
catheter and a SANDRA drain in her left kidney due to an abscess. She is receiving daily antibiotics (Ceftriaxone) daily via a PICC line in her right arm. Caterina's A1c was elevated to 13 % while she was being treated for a kidney infection in 10/2024 at
[facility]. She is interested in participating in the DSME program to help decrease her A1c. Currently she takes 40 units of Lantus daily and Humalog 5 units pre-meal. She wears a sha 2 sensor and scans twice daily. We discussed switching
to a freestyle 2 plus or Dexcom G7 to be able to see the alerts and glucose readings without having to scan. We discussed yearly retina eye exams and Caterina stated she will schedule an appt prior to class starting in January.
--- NOTE | 2024-12-27 16:50 | PN.DIAED04 ---
Education Record
- Education Record
Class Attended: Other (Initial DSME assessment)
DSME Class Series Code: [id number]
Instructor: Registered Nurse (Kalyani Rodriguez RN)
Pre-Program Knowledge: Needs review / Assistance
Pre-Test Score (%): 74
Goals
- Goal 1
Being Active: Exercise 15 minutes-3 times per week
Goals To Be Evaluated: Exercise 15 mins-3x/week
- Goal 2
Healthy Eating: Make better food choices
Goals To Be Evaluated: Make better food choices
- Goal 3
Monitoring: Monitor more often (scan freestyle sha 2 fasting. pre-meal and a few 2 hour post meals)
Goals To Be Evaluated: Monitor more often
--- NOTE | 2025-01-25 09:44 | PN.DIAED14 ---
This is to notify you that your patient with diabetes, VINNY MCKINNON ( 1970), has enrolled in our diabetes self-management classes that are being held at [facility].
These classes will include an introduction to diabetes, diet, medication, exercise and prevention of complications. At the end of our class series, you will receive a report of your patient's participation and progress for your records.
Please contact me at the Diabetes Center, , if there is any particular information regarding your patient that might be helpful to me.
Sincerely,
Joshua DONALD-JESÚS,[facility]
--- NOTE | 2025-01-27 09:08 | PN.DIAED06 ---
Meal Plans - Regular
- Meal Plan
Diabetic Meal Plan Name: 1400 calories
Breakfast - Total Carbohydrate (grams): 30
Breakfast - Starch Carbohydrate: 0
Breakfast - Fruit Carbohydrate: 0
Breakfast - Milk Carbohydrate: 0
Breakfast - Nonstarchy Vegetables: Yes
Breakfast - Meat/Protein: 1
Breakfast - Fat: 2
Morning Snack - Total Carbohydrate (grams): 15
Morning Snack - Starch Carbohydrate: 0
Morning Snack - Fruit Carbohydrate: 0
Morning Snack - Milk Carbohydrate: 0
Morning Snack - Nonstarchy Vegetables: Yes
Morning Snack - Meat/Protein: 0.5
Morning Snack - Fat: 0
Lunch - Total Carbohydrate (grams): 30
Lunch - Starch Carbohydrate: 0
Lunch - Fruit Carbohydrate: 0
Lunch - Milk Carbohydrate: 0
Lunch - Nonstarchy Vegetables: Yes
Lunch - Meat/Protein: 2
Lunch - Fat: 1
Afternoon Snack - Total Carbohydrate (grams): 15
Afternoon Snack - Starch Carbohydrate: 0
Afternoon Snack - Fruit Carbohydrate: 0
Afternoon Snack - Milk Carbohydrate: 0
Afternoon Snack - Nonstarchy Vegetables: Yes
Afternoon Snack - Meat/Protein: 0.5
Afternoon Snack - Fat: 0
Dinner - Total Carbohydrate (grams): 30
Dinner - Starch Carbohydrate: 0
Dinner - Fruit Carbohydrate: 0
Dinner - Milk Carbohydrate: 0
Dinner - Nonstarchy Vegetables: Yes
Dinner - Meat/Protein: 2
Dinner - Fat: 1
Evening Snack - Total Carbohydrate (grams): 15
Evening Snack - Starch Carbohydrate: 0
Evening Snack - Fruit Carbohydrate: 0
Evening Snack - Milk Carbohydrate: 0
Evening Snack - Nonstarchy Vegetables: Yes
Evening Snack - Meat/Protein: 0
Evening Snack - Fat: 0
== END ==
LOC: DES 08:18
PROVIDERS: ATTENDING PHYSICIAN Family Medicine
DX: E11.65 Type 2 diabetes mellitus with hyperglycemia (principal)
CPT/HCPCS: 99078

== ENCOUNTER → 2025-01-31 08:22 | Outpatient (REF) | payer OTHER, SELFPAY ==
--- NOTE | 2025-02-01 09:43 | PN.DIAED04 ---
Education Record
- Education Record
Class Attended: Class 2
DSME Class Series Code: [id number]
Instructor: Registered Dietitian (Shantel Plaza, RD, LDN, CDE)
Class Curriculum:
Outpatient Diabetes Education Program:
Class 2 (120 minutes)
Incorporate nutritional management into lifestyle
Understanding nutritional value
Understanding carbohydrate counting
Class Length (mins): 120
== END ==
LOC: DES 08:22
PROVIDERS: ATTENDING PHYSICIAN Family Medicine
DX: E11.65 Type 2 diabetes mellitus with hyperglycemia (principal)
CPT/HCPCS: 99078

== ENCOUNTER → 2025-02-07 08:02 | Outpatient (REF) | payer OTHER, SELFPAY | LOC: DES 08:02 | PROVIDERS: ATTENDING PHYSICIAN Family Medicine | DX: E11.65 Type 2 diabetes mellitus with hyperglycemia (principal) | CPT/HCPCS: 99078 ==

== ENCOUNTER → 2025-02-14 10:44 | Outpatient (REF) | payer OTHER, SELFPAY | LOC: DES 10:44 | PROVIDERS: ATTENDING PHYSICIAN Family Medicine | DX: E11.65 Type 2 diabetes mellitus with hyperglycemia (principal) | CPT/HCPCS: 99078 ==

== ENCOUNTER → 2025-02-21 13:48 | Outpatient (REF) | payer OTHER, SELFPAY ==
--- NOTE | 2025-02-24 10:11 | PN.DIAED04 ---
Education Record
- Education Record
Class Attended: Class 5
DSME Class Series Code: [id number]
Instructor: Nurse Practitioner (ODILON Childers)
Class Curriculum:
Outpatient Diabetes Education Program:
Class 5 (120 minutes)
Prevent, detect, and treat acute complications
Prevent, detect, and treat chronic complications through risk reduction
Develop personal strategies to address psychosocial issues and concerns
Development of diabetes self-management support plan
Letter to physician with DSMS plan attached sent
Class Length (mins): 120
Post-Program Knowledge: Demonstrates competency
Post-Test Score (%): 98
Post-Program Assessment
- Post-Program Assessment
Actual Weight: 154 lb 12.8 oz
Blood pressure: 152/80
Post-Program Depression Survey Score: 0
Reviewing Previous Goals?: Yes
Pre-Program Depression Survey Score: 0
- Goals 1 Evaluation
Goals To Be Evaluated: Exercise 15 mins-3x/week
- Goals 2 Evaluation
Goals To Be Evaluated: Make better food choices
- Goals 3 Evaluation
Goals To Be Evaluated: Monitor more often
--- NOTE | 2025-02-24 10:13 | PN.DIAED16 ---
This is to notify you that your patient with diabetes, VINNY MCKINNON ( 1970), has attended the entire series of Diabetes Self-Management Education Classes.
Class 1 (120 minutes): Diabetes Overview - monitoring, stress/psychosocial adjustment, support, goal setting
Class 2 (120 minutes): Meal Planning - serving sizes, menu plans
Class 3 (120 minutes): Introduction to Carbohydrate Counting, Analyzing Food Labels
Class 4 (120 minutes): Medication, Exercise and Activity
Class 5 (120 minutes): Sick Day Management, Strategies to Reduce Complications, Problem Solving, Resources
The following behavioral goals were identified:
Exercise 15 mins-3x/week
Make better food choices
Monitor more often
A follow-up call will be made within three to six months to evaluate attainment of these goals and to check post-program Hemoglobin A1c and overall progress. All class participants are encouraged to contact me if I can be any further assistance in
learning how to manage their diabetes.
Sincerely,
Joshua DONALD-JESÚS, [facility]
== END ==
LOC: DES 13:48
PROVIDERS: ATTENDING PHYSICIAN Family Medicine
DX: E11.65 Type 2 diabetes mellitus with hyperglycemia (principal)
CPT/HCPCS: 99078

== ENCOUNTER → 2025-02-25 07:59 | Outpatient (REF) | payer OTHER, SELFPAY | LOC: RAD 07:59 | PROVIDERS: ATTENDING PHYSICIAN Urology; FAMILY PHYSICIAN Family Medicine | DX: N15.1 Renal and perinephric abscess (principal); K68.12 Psoas muscle abscess; N13.70 Vesicoureteral-reflux, unspecified; N31.8 Other neuromuscular dysfunction of bladder; K68.19 Other retroperitoneal abscess; N28.89 Other specified disorders of kidney and ureter | CPT/HCPCS: 74177; Q9967 ==

== ENCOUNTER → 2025-04-08 14:08 | Outpatient (REF) | payer OTHER, SELFPAY | LOC: HWRAD 14:08 | PROVIDERS: ATTENDING PHYSICIAN Urology; FAMILY PHYSICIAN Family Medicine | DX: R33.9 Retention of urine, unspecified (principal); R39.15 Urgency of urination; N15.1 Renal and perinephric abscess; N13.70 Vesicoureteral-reflux, unspecified; K68.12 Psoas muscle abscess; N31.8 Other neuromuscular dysfunction of bladder | CPT/HCPCS: 76775 ==

== ENCOUNTER → 2025-10-04 10:36 | Outpatient (REF) | payer OTHER, SELFPAY | LOC: HWRAD 10:36 | PROVIDERS: ATTENDING PHYSICIAN Student in an Organized Health Care Education/Training Program; FAMILY PHYSICIAN Family Medicine | DX: J18.9 Pneumonia, unspecified organism (principal); I76 Septic arterial embolism; R91.8 Other nonspecific abnormal finding of lung field; I25.10 Atherosclerotic heart disease of native coronary artery without angina pectoris | CPT/HCPCS: 71250 ==

== ENCOUNTER → 2025-10-11 07:46 | Outpatient (REF) | payer OTHER, SELFPAY | LOC: HWRAD 07:46 | PROVIDERS: ATTENDING PHYSICIAN Urology; FAMILY PHYSICIAN Family Medicine | DX: N13.70 Vesicoureteral-reflux, unspecified (principal); Z93.6 Other artificial openings of urinary tract status | CPT/HCPCS: 76775 ==